=== PATIENT | female | born 1970 | race Caucasian/White ===

== ENCOUNTER 2018-10-27 11:02 | Day surgery (SDC) | payer OTHER ==
[2018-10-27 11:37] VITALS: TEMP 98.2
[2018-10-27] MEDS ORDERED: LIDOCAINE 1% 20 ML VIAL (10MG/ML) FOR IV START INTRADERMA PRN (11:38)
[2018-10-27] MEDS ORDERED: LACTATED RINGERS 1,000 ML IV SCH (11:38)
[2018-10-27] MEDS ORDERED: LIDOCAINE 1% INJ 10MG/ML (20 ML MDV) ONE (12:14)
[2018-10-27] MEDS ORDERED: ONDANSETRON 4 MG/2 ML VIAL ONE (12:14)
[2018-10-27] MEDS ORDERED: PROPOFOL 10 MG/ML 20 ML VIAL IV ONE (12:14)
--- NOTE | 2018-10-27 12:20 | P.GSHP ---
History of Present Illness H&P Date: 10/27/18 Chief Complaint: Epigastric abdominal pain, family history colon cancer This a 48-year-old female who presents today for EGD and colonoscopy. Patient has a strong family history of colon cancer. She's had some complaints of epigastric dull pain. Patient will undergo EGD and colonoscopy. Past Medical History Past Medical History: Thyroid Disorder Additional Past Medical History / Comment(s): ovarian cysts, endometrial ablation; HAVING PAIN IN ABD AREA 2 WEEKS AGO X 3 WEEKS. History of Any Multi-Drug Resistant Organisms: None Reported Past Surgical History: Adenoidectomy, Section, Tonsillectomy Past Psychological History: No Psychological Hx Reported Smoking Status: Former smoker Past Alcohol Use History: Occasional Past Drug Use History: None Reported - Past Family History Father Additional Family Medical History / Comment(s): COLON CANCER Medications and Allergies Home Medications Medication Instructions Recorded Confirmed Type No Known Home Medications 10/03/18 10/27/18 History Allergies Allergy/AdvReac Type Severity Reaction Status Date / Time No Known Allergies Allergy Verified 10/03/18 19:20 Surgical - Exam Vital Signs Temp Pulse Resp BP Pulse Ox 98.2 F 69 18 108/58 98 10/27/18 11:34 10/27/18 11:34 10/27/18 11:34 10/27/18 11:34 10/27/18 11:34 - General well developed, well nourished, no distress - Eyes PERRL - ENT normal pinna - Neck no masses - Respiratory normal expansion - Cardiovascular Rhythm: regular - Abdomen Abdomen: soft, non tender Assessment and Plan Assessment: Epigastric abdominal pain, family history colon cancer. We'll perform EGD and colonoscopy.
--- NOTE | 2018-10-27 12:39 | P.OP ---
Date of Procedure: 10/27/18 Preoperative Diagnosis: Abdominal pain Family History of colon cancer Postoperative Diagnosis: Mild antral gastritis Mild diverticulosis Procedure(s) Performed: EGD Colonoscopy Anesthesia: MAC Surgeon: Seth Gary Pathology: other (Antrum) Condition: stable Disposition: PACU Description of Procedure: The patient's placed on the endoscopy table in the lateral position. She received IV sedation. The gastroscope placed oropharynx passed in the esophagus and into the stomach. The scope was then placed through the pylorus. The first and second portion of the duodenum appeared normal. Scope was then brought back the antrum this. Mildly inflamed. A biopsies was performed. Scope was then re troflexed and remainder of the stomach appeared normal. The GE junction was at 40 cm. The distal esophagus appeared normal. The proximal esophagus appeared normal. Scope was withdrawn for patient. Next digital rectal exam was performed which revealed no abnormalities. The possible colonoscope was then placed patient anus passed throughout the entire colon. The ileocecal valve sutures. The cecum, ascending and transverse colon appeared normal. In the descending and sigmoid colon there is mild diverticular changes. The scope was brought back the rectum and this appeared normal. Scope withdrawn for patient. Patient was scheduled for HIDA scan due to her epigastric abdominal pain.
[2018-10-27] MEDS ORDERED: IV FLUID CONTINUATION 450 ML IV ONE (12:44)
[2018-10-27 12:56] VITALS: RESP 16
[2018-10-27 13:01] VITALS: BP 128/67; PULSE 61
== END 2018-10-27 14:06 | disposition home or self-care (01) ==
LOC: ORWHC2ENDO 11:02
PROVIDERS: ATTEND Surgery
DX: K29.50 Unspecified chronic gastritis without bleeding (principal); K57.30 Diverticulosis of large intestine without perforation or abscess without bleeding; E07.9 Disorder of thyroid, unspecified; Z80.0 Family history of malignant neoplasm of digestive organs; Z87.891 Personal history of nicotine dependence
CPT/HCPCS: 43239; 45378; 81025; 88305; J2405; J2001; J2704

== ENCOUNTER 2018-10-30 11:20 | Inpatient (IN) | payer OTHER ==
[2018-10-30] MEDS ORDERED: MORPHINE SULFATE 4 MG/ML SYRINGE IV STA (11:49)
[2018-10-30] MEDS ORDERED: SODIUM CHLORIDE 0.9% 1,000 ML IV STA ×2 (11:49→14:57)
[2018-10-30 12:26] LABS: Basophils % (A) 0 %; Eosinophils # (A) 0.1 k/uL (0-0.7); Eosinophils % (A) 1 %; HCT 38.4 % (34.0-46.0); HGB 12.6 gm/dL (11.4-16.0); Lymphocytes # (A) 0.7 k/uL (1.0-4.8); Lymphocytes % (A) 8 %; MCH 28.8 pg (25.0-35.0); MCHC 32.7 g/dL (31.0-37.0); MCV 88.2 fL (80.0-100.0); Mean Platelet Volume 6.8; Monocytes # (A) 0.4 k/uL (0-1.0); Monocytes % (A) 4 %; Neutrophils # (A) 8.4 k/uL (1.3-7.7); Neutrophils % (A) 86 %; Platelet Count 346 k/uL (150-450); RBC 4.36 m/uL (3.80-5.40); RDW 13.4 % (11.5-15.5); WBC 9.8 k/uL (3.8-10.6)
[2018-10-30 12:30] LABS: ALT 16 U/L (9-52); AST 20 U/L (14-36); African American GFR (CKD) >90 (>60 ml/min/1.73 sqM); Albumin 4.5 g/dL (3.5-5.0); Alkaline Phosphatase 77 U/L (38-126); Amylase 54 U/L (30-110); Anion Gap 12 mmol/L; Blood Urea Nitrogen 4 mg/dL (7-17); Calcium 9.3 mg/dL (8.4-10.2); Carbon Dioxide 24 mmol/L (22-30); Chloride 102 mmol/L (98-107); Glucose 107 mg/dL (74-99); Magnesium 1.9 mg/dL (1.6-2.3); Phosphorus 3.6 mg/dL (2.5-4.5); Potassium 3.9 mmol/L (3.5-5.1); Sodium 138 mmol/L (137-145); Total Bilirubin 0.7 mg/dL (0.2-1.3); Total Protein 7.5 g/dL (6.3-8.2)
--- NOTE | 2018-10-30 12:51 | CT ---
EXAMINATION TYPE: CT abdomen pelvis w con DATE OF EXAM: 10/30/2018 HISTORY: Pelvic pain CT DLP: 735.2mGycm Automated Exposure Control for Dose Reduction was Utilized. CONTRAST: CT scan of the abdomen and pelvis is performed without oral but with IV Contrast, patient injected wi th 100 mL of Isovue 300. COMPARISON: CT abdomen and pelvis from 22 days ago FINDINGS: LUNG BASES: No significant abnormality is appreciated. LIVER/GB: Some subcentimeter hypodense lesions scattered throughout the liver are too small to furthe r characterize but presumably benign. PANCREAS: No significant abnormality is seen. SPLEEN: No significant abnormality is seen. ADRENALS: No significant abnormality is seen. KIDNEYS: No significant abnormality is seen. BOWEL: Normal-appearing appendix seen ascending from cecum. Evaluation bowel is suboptimal secondary to lack of enteric contrast. Stomach is suboptimally distended and thus limited in evaluation. No kev picious small or large bowel dilatation. Mild to moderate wall thickening in the mid to distal left c olon extending into proximal sigmoid colon with diverticula and focal moderate ill-defined fluid and fat stranding left lower quadrant consistent with acute diverticulitis axial image 48. No well-formed fluid collection or abscess. No pneumoperitoneum. UTERUS/ADNEXA: Anteverted uterus. Tiny amount of free fluid in pelvis axial image 72. Hypodense lesio ns in both ovaries measuring up to 3.9 cm right ovary axial image 60 stable or slightly less prominen t from prior. Ovarian findings have be better evaluated with pelvic ultrasound if desired. LYMPH NODES: No greater than 1cm abdominal or pelvic lymph nodes are appreciated. OSSEOUS STRUCTURES: Multilevel facet arthropathy in the lower lumbar spine. OTHER: No significant additional abnormality is seen. IMPRESSION: New moderate acute uncomplicated diverticulitis felt present in the distal left colon, le ft lower quadrant.
[2018-10-30 13:02] LABS: Appearance,Urine Clear (Clear); Bilirubin,Urine Negative (Negative); Blood,Urine Negative (Negative); Color,Urine Yellow; Glucose,Urine (UA) Negative (Negative); Ketones,Urine 3+ (Negative); Leukocyte Esterase,Urine Negative (Negative); Nitrite,Urine Negative (Negative); Protein,Urine Trace (Negative); Specific Gravity,Urine 1.019 (1.001-1.035); Urobilinogen,Urine <2.0 mg/dL (<2.0)
[2018-10-30] MEDS ORDERED: MORPHINE SULFATE 2 MG/ML SYRINGE IVP STA (13:12)
--- NOTE | 2018-10-30 13:34 | ED ---
Abdominal Pain HPI - General Chief Complaint: Abdominal Pain Stated Complaint: post op pain Time Seen by Provider: 10/30/18 11:34 Source: patient, RN notes reviewed, old records reviewed Mode of arrival: ambulatory Limitations: no limitations - History of Present Illness Initial Comments: This is a 48-year-old female the ER for evaluation she presents today for evaluation regards to abdominal pain chronic abdominal pain for months now. Patient is had upper GI and colonoscopy unsure of results wasn't told anything specific and direct. Patient had worsening pain since colonoscopy no appetite and unable to eat or drink. Patient's been diagnosed in the past with ovarian disease including cysts, patient is also been diagnosed with ulcer disease. No fevers. Patient complaining of currently diffuse abdominal pain with left lower quadrant abdominal pain MD Complaint: abdominal pain -: week(s), month(s) Location: LLQ, suprapubic Radiation: epigastric Migration to: epigastric Quality: cramping, stabbing, aching Consistency: constant Improves With: nothing Worsens With: nothing Context: recent surgery/procedure Associated Symptoms: nausea Treatments Prior to Arrival: NSAIDs - Related Data Home Medications Medication Instructions Recorded Confirmed Acetaminophen Tab [Tylenol Tab] 1,000 mg PO TID PRN 10/30/18 10/30/18 L.acidoph,Paracasei, B.lactis 1 cap PO DAILY 10/30/18 10/30/18 [Probiotic] traMADol HCL [Ultram] 50 mg PO DAILY PRN 10/30/18 10/30/18 Allergies Allergy/AdvReac Type Severity Reaction Status Date / Time No Known Allergies Allergy Verified 10/30/18 12:11 Review of Systems ROS Statement: Those systems with pertinent positive or pertinent negative responses have been documented in the HPI. ROS Other: All systems not noted in ROS Statement are negative. Past Medical History Past Medical History: Thyroid Disorder Additional Past Medical History / Comment(s): ovarian cysts, endometrial ablation; HAVING PAIN IN ABD AREA 2 WEEKS AGO X 3 WEEKS. History of Any Multi-Drug Resistant Organisms: None Reported Past Surgical History: Adenoidectomy, Section, Tonsillectomy Past Psychological History: No Psychological Hx Reported Smoking Status: Former smoker Past Alcohol Use History: Occasional Past Drug Use History: None Reported - Past Family History Father Additional Family Medical History / Comment(s): COLON CANCER General Exam Limitations: no limitations General appearance: alert, in no apparent distress Head exam: Present: atraumatic, normocephalic, normal inspection Eye exam: Present: normal appearance, PERRL, EOMI. Absent: scleral icterus, conjunctival injection, periorbital swelling ENT exam: Present: normal exam, mucous membranes moist Neck exam: Present: normal inspection. Absent: tenderness, meningismus, lymph adenopathy Respiratory exam: Present: normal lung sounds bilaterally. Absent: respiratory distress, wheezes, rales, rhonchi, stridor Cardiovascular Exam: Present: regular rate, normal rhythm, normal heart sounds. Absent: systolic murmur, diastolic murmur, rubs, gallop, clicks GI/Abdominal exam: Present: soft, normal bowel sounds. Absent: distended, tenderness, guarding, rebound, rigid Extremities exam: Present: normal inspection, full ROM, normal capillary refill. Absent: tenderness, pedal edema, joint swelling, calf tenderness Back exam: Present: normal inspection Neurological exam: Present: alert, oriented X3, CN II-XII intact Psychiatric exam: Present: normal affect, normal mood Skin exam: Present: warm, dry, intact, normal color. Absent: rash Course Vital Signs 10/30/18 10/30/18 11:30 14:09 Temperature 97.8 F Pulse Rate 82 79 Respiratory 20 22 Rate Blood Pressure 158/85 136/80 O2 Sat by Pulse 99 100 Oximetry - Reevaluation(s) Reevaluation #1: 10/30/18 13:33 Medical record including prior tests and visits are reviewed Medical Decision Making - Medical Decision Making 48 female to the ER for evaluation Resuscitation, presents today for evaluation regarding abdominal pain, diverticulitis findings on CT. Patient be admitted for treatment of diverticulitis intractable abdominal pain - Lab Data Result diagrams: 10/30/18 12:02 10/30/18 12:02 Lab Results 10/30/18 10/30/18 10/30/18 Range/Units 12:02 12:02 12:02 WBC 9.8 (3.8-10.6) k/uL RBC 4.36 (3.80-5.40) m/uL Hgb 12.6 (11.4-16.0) gm/dL Hct 38.4 (34.0-46.0) % MCV 88.2 (80.0-100.0) fL MCH 28.8 (25.0-35.0) pg MCHC 32.7 (31.0-37.0) g/dL RDW 13.4 (11.5-15.5) % Plt Count 346 (150-450) k/uL Neutrophils % 86 % Lymphocytes % 8 % Monocytes % 4 % Eosinophils % 1 % Basophils % 0 % Neutrophils # 8.4 H (1.3-7.7) k/uL Lymphocytes # 0.7 L (1.0-4.8) k/uL Monocytes # 0.4 (0-1.0) k/uL Eosinophils # 0.1 (0-0.7) k/uL Basophils # 0.0 (0-0.2) k/uL Sodium 138 (137-145) mmol/L Potassium 3.9 (3.5-5.1) mmol/L Chloride 102 (98-107) mmol/L Carbon Dioxide 24 (22-30) mmol/L Anion Gap 12 mmol/L BUN 4 L (7-17) mg/dL Creatinine 0.58 (0.52-1.04) mg/dL Est GFR (CKD-EPI)AfAm >90 (>60 ml/min/1.73 sqM) Est GFR (CKD-EPI)NonAf >90 (>60 ml/min/1.73 sqM) Glucose 107 H (74-99) mg/dL Plasma Lactic Acid Cullen 1.0 (0.7-2.0) mmol/L Calcium 9.3 (8.4-10.2) mg/dL Phosphorus 3.6 (2.5-4.5) mg/dL Magnesium 1.9 (1.6-2.3) mg/dL Total Bilirubin 0.7 (0.2-1.3) mg/dL AST 20 (14-36) U/L ALT 16 (9-52) U/L Alkaline Phosphatase 77 (38-126) U/L Total Protein 7.5 (6.3-8.2) g/dL Albumin 4.5 (3.5-5.0) g/dL Amylase 54 (30-110) U/L Lipase 56 (23-300) U/L Urine Color Urine Appearance (Clear) Urine pH (5.0-8.0) Ur Specific Eldridge (1.001-1.035) Urine Protein (Negative) Urine Glucose (UA) (Negative) Urine Ketones (Negative) Urine Blood (Negative) Urine Nitrite (Negative) Urine Bilirubin (Negative) Urine Urobilinogen (<2.0) mg/dL Ur Leukocyte Esterase (Negative) 10/30/18 Range/Units 12:49 WBC (3.8-10.6) k/uL RBC (3.80-5.40) m/uL Hgb (11.4-16.0) gm/dL Hct (34.0-46.0) % MCV (80.0-100.0) fL MCH (25.0-35.0) pg MCHC (31.0-37.0) g/dL RDW (11.5-15.5) % Plt Count (150-450) k/uL Neutrophils % % Lymphocytes % % Monocytes % % Eosinophils % % Basophils % % Neutrophils # (1.3-7.7) k/uL Lymphocytes # (1.0-4.8) k/uL Monocytes # (0-1.0) k/uL Eosinophils # (0-0.7) k/uL Basophils # (0-0.2) k/uL Sodium (137-145) mmol/L Potassium (3.5-5.1) mmol/L Chloride (98-107) mmol/L Carbon Dioxide (22-30) mmol/L Anion Gap mmol/L BUN (7-17) mg/dL Creatinine (0.52-1.04) mg/dL Est GFR (CKD-EPI)AfAm (>60 ml/min/1.73 sqM) Est GFR (CKD-EPI)NonAf (>60 ml/min/1.73 sqM) Glucose (74-99) mg/dL Plasma Lactic Acid Cullen (0.7-2.0) mmol/L Calcium (8.4-10.2) mg/dL Phosphorus (2.5-4.5) mg/dL Magnesium (1.6-2.3) mg/dL Total Bilirubin (0.2-1.3) mg/dL AST (14-36) U/L ALT (9-52) U/L Alkaline Phosphatase (38-126) U/L Total Protein (6.3-8.2) g/dL Albumin (3.5-5.0) g/dL Amylase (30-110) U/L Lipase (23-300) U/L Urine Color Yellow Urine Appearance Clear (Clear) Urine pH 6.0 (5.0-8.0) Ur Specific Eldridge 1.019 (1.001-1.035) Urine Protein Trace H (Negative) Urine Glucose (UA) Negative (Negative) Urine Ketones 3+ H (Negative) Urine Blood Negative (Negative) Urine Nitrite Negative (Negative) Urine Bilirubin Negative (Negative) Urine Urobilinogen <2.0 (<2.0) mg/dL Ur Leukocyte Esterase Negative (Negative) - Radiology Data Radiology results: report reviewed (Up some gallbladder negative for acute disease CT of the pelvis positive for diverticulitis), image reviewed Disposition Clinical Impression: Abdominal pain, Diverticulitis Disposition: ADMITTED IP TO THIS [facility] Condition: Good Is patient prescribed a controlled substance at d/c from ED?: No Referrals: Lauren Porter DO [Primary Care Provider] - 1-2 days
[2018-10-30] MEDS ORDERED: MORPHINE SULFATE 4 MG/ML SYRINGE IVP STA (14:03)
[2018-10-30] MEDS ORDERED: MORPHINE SULFATE 2 MG/ML SYRINGE IM STA (14:04)
--- NOTE | 2018-10-30 14:15 | US ---
EXAMINATION TYPE: US gallbladder DATE OF EXAM: 10/30/2018 COMPARISON: CT abdomen and pelvis earlier today CLINICAL HISTORY: Pain. Pain, nausea and vomiting. EXAM MEASUREMENTS: Liver Length: 14.8 cm Gallbladder Wall: 0.3 cm CBD: 0.5 cm Right Kidney: 10.6 x 3.7 x 4.5 cm Pancreas: Tail obscured by overlying bowel gas Liver: wnl Gallbladder: wnl Evidence for sonographic Ferrer's sign: No CBD: wnl Right Kidney: wnl IMPRESSION: No shadowing mobile gallstones or ultrasound evidence for acute cholecystitis.
[2018-10-30] MEDS ORDERED: HYDROmorphone 1 MG/ML 1 ML SYRINGE IVP STA (14:34)
[2018-10-30] MEDS ORDERED: PANTOPRAZOLE 40 MG/10 ML VIAL IVP STA (14:48)
[2018-10-30] MEDS ORDERED: PIPERACILLIN-TAZOBACTAM 3.375 GM in SODIUM CHLORIDE 0.9% 100 ML IVPB STA (14:48)
[2018-10-30] MEDS ORDERED: ONDANSETRON 4 MG/2 ML VIAL IVP STA (14:48)
[2018-10-30 16:09] VITALS: BMI 32.1
[2018-10-30] MEDS: HYDROmorphone 1 MG/ML 1 ML SYRINGE IVP PRN ×2 (17:19→23:35)
[2018-10-30] MEDS: ONDANSETRON 4 MG/2 ML VIAL IVP PRN (19:34)
[2018-10-30] MEDS: ACETAMINOPHEN TAB 500 MG TAB PO PRN (19:34)
[2018-10-30] MEDS: PIPERACILLIN-TAZOBACTAM 3.375 GM in SODIUM CHLORIDE 0.9% 100 ML IVPB SCH (23:39)
[2018-10-31] MEDS: ACETAMINOPHEN TAB 500 MG TAB PO PRN (03:38)
[2018-10-31] MEDS: ONDANSETRON 4 MG/2 ML VIAL IVP PRN ×4 (03:38→23:03)
[2018-10-31] MEDS: HYDROmorphone 1 MG/ML 1 ML SYRINGE IVP PRN ×2 (04:27→09:37)
[2018-10-31] MEDS: PIPERACILLIN-TAZOBACTAM 3.375 GM in SODIUM CHLORIDE 0.9% 100 ML IVPB SCH ×3 (07:47→23:03)
[2018-10-31] MEDS: PANTOPRAZOLE 40 MG/10 ML VIAL IVP SCH (07:47)
[2018-10-31] MEDS: ACETAMINOPHEN TAB 500 MG TAB PO SCH ×3 (09:30→23:03)
[2018-10-31] MEDS: SUCRALFATE 1 GM TAB PO SCH ×2 (09:31→15:48)
[2018-10-31 09:58] LABS: Basophils % (A) 0 %; Eosinophils % (A) 0 %; HCT 35.6 % (34.0-46.0); HGB 11.7 gm/dL (11.4-16.0); Lymphocytes # (A) 0.9 k/uL (1.0-4.8); Lymphocytes % (A) 12 %; MCH 29.3 pg (25.0-35.0); MCHC 32.8 g/dL (31.0-37.0); MCV 89.2 fL (80.0-100.0); Mean Platelet Volume 6.5; Monocytes # (A) 0.4 k/uL (0-1.0); Monocytes % (A) 5 %; Neutrophils # (A) 6.2 k/uL (1.3-7.7); Neutrophils % (A) 80 %; Platelet Count 327 k/uL (150-450); RBC 3.99 m/uL (3.80-5.40); RDW 13.3 % (11.5-15.5); WBC 7.7 k/uL (3.8-10.6)
[2018-10-31 10:09] LABS: African American GFR (CKD) >90 (>60 ml/min/1.73 sqM); Anion Gap 9 mmol/L; Blood Urea Nitrogen 6 mg/dL (7-17); Calcium 8.9 mg/dL (8.4-10.2); Carbon Dioxide 25 mmol/L (22-30); Chloride 103 mmol/L (98-107); Glucose 79 mg/dL (74-99); Sodium 137 mmol/L (137-145)
--- NOTE | 2018-10-31 13:36 | P.HPIM ---
History of Present Illness H&P Date: 10/31/18 Meryl Pickett is a 48 yo F with PMH significant for endometriosis, GERD who presented to [facility] ED complaining of worsening abdominal pain. She states that ever since having an endometrial ablation a few months ago she has been having dysmenorrhea and taking naprosyn approx 2 weeks out of every month. Due to this she had started to have more/worsened abdominal pain so recently underwent an EGD and colonoscopy. Her EGD showed mild gastritis and colonoscopy remarkable only for diverticulosis. Since undergoing her procedures 4 days ago, she has noted continued LLQ which worsened yesterday to be severe with associated nausea and malaise. She also vomited once. Denies hematochezia or melena. On pre sentation to the ED, vitals stable, WBC 9.8, CT did show diverticulitis. She was started on zosyn. This am, she continues to complain of abdominal pain which is improved from yesterday. No feves or chills. Her appetite is improving. Review of Systems All systems: negative Constitutional: Reports fatigue, Reports malaise, Denies chills, Denies fever Eyes: denies blurred vision, denies pain Ears, nose, mouth and throat: Denies headache, Denies sore throat Cardiovascular: Denies chest pain, Denies shortness of breath Respiratory: Denies cough Gastrointestinal: Reports abdominal pain, Reports early satiety, Reports heartburn, Reports loss of appetite, Reports nausea, Denies diarrhea, Denies vomiting Genitourinary: Reports dysmenorrhea, Denies dysuria, Denies hematuria Musculoskeletal: Denies myalgias Integumentary: Denies pruritus, Denies rash Neurological: Denies numbness, Denies weakness Psychiatric: Denies anxiety, Denies depression Endocrine: Denies fatigue, Denies weight change Past Medical History Past Medical History: Thyroid Disorder Additional Past Medical History / Comment(s): ovarian cysts, endometrial ablation; HAVING PAIN IN ABD AREA 2 WEEKS AGO X 3 WEEKS. History of Any Multi-Drug Resistant Organisms: None Reported Past Surgical History: Adenoidectomy, Section, Tonsillectomy Past Anesthesia/Blood Transfusion Reactions: No Reported Reaction Past Psychological History: No Psychological Hx Reported Smoking Status: Former smoker Past Alcohol Use History: Occasional Past Drug Use History: None Reported - Past Family History Father Additional Family Medical History / Comment(s): COLON CANCER Medications and Allergies Home Medications Medication Instructions Recorded Confirmed Type Acetaminophen Tab [Tylenol Tab] 1,000 mg PO TID PRN 10/30/18 10/30/18 History L.acidoph,Paracasei, B.lactis 1 cap PO DAILY 10/30/18 10/30/18 History [Probiotic] traMADol HCL [Ultram] 50 mg PO DAILY PRN 10/30/18 10/30/18 History Allergies Allergy/AdvReac Type Severity Reaction Status Date / Time No Known Allergies Allergy Verified 10/30/18 12:11 Physical Exam Vitals: Vital Signs Temp Pulse Pulse Resp BP BP Pulse Ox 10/31/18 07:00 98.7 F 77 16 111/71 98 10/31/18 01:56 98.5 F 76 16 107/64 98 10/30/18 19:17 98.7 F 68 17 134/79 99 10/30/18 16:14 16 10/30/18 15:43 97.5 F L 74 16 141/77 99 10/30/18 14:09 79 22 136/80 100 10/30/18 11:30 97.8 F 82 20 158/85 99 Intake and Output 10/30/18 10/31/18 10/31/18 22:59 06:59 14:59 Other: # Voids 1 1 General: well nourished, well developed, NAD. Vitals reviewed Eyes: PERRL, EOMI, conjunctiva normal HENT: normocephalic, mucus membranes moist Neck: supple, no JVD Lungs: normal respiratory effort, no wheezes or rales CV: Regular rate and rhythm, no murmur. Peripheral pulses 2+ Abdomen: soft, nondistended, no organomegaly. LLQ tenderness Lymph: no cervical or axillary LAD Skin: warm and dry. Neuro: A&Ox3, normal mood and affect Results CBC & Chem 7: 10/31/18 09:20 10/31/18 09:20 Labs: Abnormal Lab Results - Last 24 Hours (Table) 10/30/18 10/30/18 10/30/18 Range/Units 12:02 12:02 12:49 Neutrophils # 8.4 H (1.3-7.7) k/uL Lymphocytes # 0.7 L (1.0-4.8) k/uL BUN 4 L (7-17) mg/dL Glucose 107 H (74-99) mg/dL Urine Protein Trace H (Negative) Urine Ketones 3+ H (Negative) 10/31/18 10/31/18 Range/Units 09:20 09:20 Neutrophils # (1.3-7.7) k/uL Lymphocytes # 0.9 L (1.0-4.8) k/uL BUN 6 L (7-17) mg/dL Glucose (74-99) mg/dL Urine Protein (Negative) Urine Ketones (Negative) Thrombosis Risk Factor Assmnt - Choose All That Apply Any of the Below Risk Factors Present?: Yes Each Factor Represents 1 point: Age 41-60 years, Obesity (BMI >25) Thrombosis Risk Factor Assessment Total Risk Factor Score: 2 Thrombosis Risk Factor Assessment Level: Low Risk Assessment and Plan (1) Diverticulitis Current Visit: Yes Status: Acute Code(s): K57.92 - DVTRCLI OF INTEST, PART UNSP, W/O PERF OR ABSCESS W/O BLEED SNOMED Code(s): 671627770 (2) GERD (gastroesophageal reflux disease) Current Visit: Yes Status: Acute Code(s): K21.9 - GASTRO-ESOPHAGEAL REFLUX DISEASE WITHOUT ESOPHAGITIS SNOMED Code(s): 724254186 (3) Dysmenorrhea Current Visit: Yes Status: Acute Code(s): N94.6 - DYSMENORRHEA, UNSPECIFIED SNOMED Code(s): 341420783 Plan: 1. Diverticulitis. On zosyn, wbc decreasing today and appetite improving. Consider transition to PO abx tomorrow 2. Gastritis. Likely secondary to chronic NSAID use. Protonix while inpatient, script for PPI on discharge Pain controlled with dilaudid. Transition to norco today
[2018-10-31 14:04] LABS: C. trachomatis,PCR Negative (Neg,Equiv); Chlamydia trachomatis Source Urine; N. gonorrhoeae,PCR Negative (Neg,Equiv); Neisseria Source Urine
[2018-10-31] MEDS ORDERED: HYDROmorphone 0.5 MG/0.5 ML SYRINGE IVP PRN (14:07)
--- NOTE | 2018-10-31 14:22 | P.GSCN ---
<Clare Peter A - Last Filed: 10/31/18 14:11> History of Present Illness Consult date: 10/31/18 Reason for Consult: Abdominal pain Requesting physician: Jose R Garcia History of present illness: CHIEF COMPLAINT: Abdominal pain HISTORY OF PRESENT ILLNESS: 48-year-old female who presented to the emergency room with a chief complaint abdominal pain. Patient reports she has been having abdominal pain on and off for the last month but it became more severe over the last couple days. Patient recently underwent EGD and colonoscopy on 10/27/2018 revealing mild gastritis and diverticulosis. Patient seen and examined this morning to bedside. She continues to complain of left lower quadrant abdominal pain. Currently rating her pain a 6/10. [place] at the bedside with bilious emesis. Patient reports she has been drinking liquids and eating jello. She reports family history of colon cancer and diverticulitis. WBC upon admission reveals white count 9.8. Repeat this morning 7.7. CAT scan completed in the emergency room reveals moderate diverticulitis. PAST MEDICAL HISTORY: See list. PAST SURGICAL HISTORY: See list. SOCIAL HISTORY: No illicit drug use. REVIEW OF SYSTEMS: CONSTITUTIONAL: Denies fever or chills. HEENT: Denies blurred vision, vision changes, or eye pain. Denies hemoptysis CARDIOVASCULAR: Denies chest pain or pressure. RESPIRATORY: No shortness of breath. GASTROINTESTINAL: Refer to HPI for pertinent findings HEMATOLOGIC: Denies bleeding disorders. GENITOURINARY: Denies any blood in urine. SKIN: Denies pruitis. Denies rash. PHYSICAL EXAM: VITAL SIGNS: Reviewed. GENERAL: Well-developed in no acute distress. HEENT: No sclera icterus. Extraocular movements grossly intact. Moist buccal mucosa. Head is atraumatic, normocephalic. ABDOMEN: Soft. Nondistended. Tenderness with palpation to left lower quadrant. NEUROLOGIC: Alert and oriented. Cranial nerves II through XII grossly intact. ASSESSMENT: 1. Abdominal pain 2. Acute moderate diverticulitis 3. Recent EGD and colonoscopy revealing gastritis and diverticulosis 4. Chronic NSAID use PLAN: 1. NPO except ice chips until patients abdominal pain improves 2. Continue Zosyn 3. Protonix IV daily 4. Further recommendations pending patient course Nurse practitioner note has been reviewed by physician. Signing provider agrees with the documented findings, assessment, and plan of care. Past Medical History Past Medical History: Thyroid Disorder Additional Past Medical History / Comment(s): ovarian cysts, endometrial ablation; HAVING PAIN IN ABD AREA 2 WEEKS AGO X 3 WEEKS. History of Any Multi-Drug Resistant Organisms: None Reported Past Surgical History: Adenoidectomy, Section, Tonsillectomy Past Anesthesia/Blood Transfusion Reactions: No Reported Reaction Past Psychological History: No Psychological Hx Reported Smoking Status: Former smoker Past Alcohol Use History: Occasional Past Drug Use History: None Reported - Past Family History Father Additional Family Medical History / Comment(s): COLON CANCER Medications and Allergies Home Medications Medication Instructions Recorded Confirmed Type Acetaminophen Tab [Tylenol Tab] 1,000 mg PO TID PRN 10/30/18 10/30/18 History L.acidoph,Paracasei, B.lactis 1 cap PO DAILY 10/30/18 10/30/18 History [Probiotic] traMADol HCL [Ultram] 50 mg PO DAILY PRN 10/30/18 10/30/18 History Allergies Allergy/AdvReac Type Severity Reaction Status Date / Time No Known Allergies Allergy Verified 10/30/18 12:11 Surgical - Exam Vital Signs Temp Pulse Resp BP Pulse Ox 97.8 F 82 20 158/85 99 10/30/18 11:30 10/30/18 11:30 10/30/18 11:30 10/30/18 11:30 10/30/18 11:30 Results - Labs 10/31/18 09:20 10/31/18 09:20 Abnormal Lab Results - Last 24 Hours (Table) 10/31/18 10/31/18 Range/Units 09:20 09:20 Lymphocytes # 0.9 L (1.0-4.8) k/uL BUN 6 L (7-17) mg/dL Diabetes panel 10/31/18 Range/Units 09:20 Sodium 137 (137-145) mmol/L Potassium 4.0 (3.5-5.1) mmol/L Chloride 103 (98-107) mmol/L Carbon Dioxide 25 (22-30) mmol/L BUN 6 L (7-17) mg/dL Creatinine 0.59 (0.52-1.04) mg/dL Glucose 79 (74-99) mg/dL Calcium 8.9 (8.4-10.2) mg/dL Calcium panel 10/31/18 Range/Units 09:20 Calcium 8.9 (8.4-10.2) mg/dL Pituitary panel 10/31/18 Range/Units 09:20 Sodium 137 (137-145) mmol/L Potassium 4.0 (3.5-5.1) mmol/L Chloride 103 (98-107) mmol/L Carbon Dioxide 25 (22-30) mmol/L BUN 6 L (7-17) mg/dL Creatinine 0.59 (0.52-1.04) mg/dL Glucose 79 (74-99) mg/dL Calcium 8.9 (8.4-10.2) mg/dL Adrenal panel 10/31/18 Range/Units 09:20 Sodium 137 (137-145) mmol/L Potassium 4.0 (3.5-5.1) mmol/L Chloride 103 (98-107) mmol/L Carbon Dioxide 25 (22-30) mmol/L BUN 6 L (7-17) mg/dL Creatinine 0.59 (0.52-1.04) mg/dL Glucose 79 (74-99) mg/dL Calcium 8.9 (8.4-10.2) mg/dL <Milton Lawton - Last Filed: 10/31/18 16:24> History of Present Illness History of present illness: As above. Patient with CAT scan showing diverticulitis with small amount of pericolonic gas seen. Patient doing well today however. Will keep nothing by mouth for now. Continue IV antibiotics. Surgical - Exam Vital Signs Temp Pulse Resp BP Pulse Ox 97.8 F 82 20 158/85 99 10/30/18 11:30 10/30/18 11:30 10/30/18 11:30 10/30/18 11:30 10/30/18 11:30 Results - Labs 10/31/18 09:20 10/31/18 09:20 Abnormal Lab Results - Last 24 Hours (Table) 10/31/18 10/31/18 Range/Units 09:20 09:20 Lymphocytes # 0.9 L (1.0-4.8) k/uL BUN 6 L (7-17) mg/dL Diabetes panel 10/31/18 Range/Units 09:20 Sodium 137 (137-145) mmol/L Potassium 4.0 (3.5-5.1) mmol/L Chloride 103 (98-107) mmol/L Carbon Dioxide 25 (22-30) mmol/L BUN 6 L (7-17) mg/dL Creatinine 0.59 (0.52-1.04) mg/dL Glucose 79 (74-99) mg/dL Calcium 8.9 (8.4-10.2) mg/dL Calcium panel 10/31/18 Range/Units 09:20 Calcium 8.9 (8.4-10.2) mg/dL Pituitary panel 10/31/18 Range/Units 09:20 Sodium 137 (137-145) mmol/L Potassium 4.0 (3.5-5.1) mmol/L Chloride 103 (98-107) mmol/L Carbon Dioxide 25 (22-30) mmol/L BUN 6 L (7-17) mg/dL Creatinine 0.59 (0.52-1.04) mg/dL Glucose 79 (74-99) mg/dL Calcium 8.9 (8.4-10.2) mg/dL Adrenal panel 10/31/18 Range/Units 09:20 Sodium 137 (137-145) mmol/L Potassium 4.0 (3.5-5.1) mmol/L Chloride 103 (98-107) mmol/L Carbon Dioxide 25 (22-30) mmol/L BUN 6 L (7-17) mg/dL Creatinine 0.59 (0.52-1.04) mg/dL Glucose 79 (74-99) mg/dL Calcium 8.9 (8.4-10.2) mg/dL
[2018-10-31] MEDS: HYDROcodone/APAP 10-325MG 1 EACH TAB PO PRN (23:12)
[2018-11-01] MEDS: HYDROcodone/APAP 10-325MG 1 EACH TAB PO PRN (05:16)
[2018-11-01 08:34] LABS: Basophils % (A) 0 %; Eosinophils % (A) 1 %; HCT 35.1 % (34.0-46.0); HGB 11.4 gm/dL (11.4-16.0); Lymphocytes # (A) 0.7 k/uL (1.0-4.8); Lymphocytes % (A) 12 %; MCH 29.7 pg (25.0-35.0); MCHC 32.5 g/dL (31.0-37.0); MCV 91.1 fL (80.0-100.0); Mean Platelet Volume 6.7; Monocytes # (A) 0.3 k/uL (0-1.0); Monocytes % (A) 5 %; Neutrophils # (A) 4.9 k/uL (1.3-7.7); Neutrophils % (A) 80 %; Platelet Count 299 k/uL (150-450); RBC 3.85 m/uL (3.80-5.40); RDW 13.9 % (11.5-15.5); WBC 6.1 k/uL (3.8-10.6)
[2018-11-01 08:43] LABS: African American GFR (CKD) >90 (>60 ml/min/1.73 sqM); Anion Gap 12 mmol/L; Blood Urea Nitrogen 7 mg/dL (7-17); Calcium 8.5 mg/dL (8.4-10.2); Carbon Dioxide 19 mmol/L (22-30); Chloride 106 mmol/L (98-107); Glucose 67 mg/dL (74-99); Potassium 3.9 mmol/L (3.5-5.1); Sodium 137 mmol/L (137-145)
--- NOTE | 2018-11-01 10:20 | P.PN ---
Subjective Progress Note Date: 11/01/18 Principal diagnosis: Diverticulitis Patient does feel better today. Some gassy pains. She is passing flatus. No bowel movement for the last several days. Her appetite is improved. White blood cell count 6.1. She is afebrile. Objective - Vital Signs Vital signs: Vital Signs Temp 98.0 F 11/01/18 08:03 Pulse 72 11/01/18 08:03 Resp 16 11/01/18 08:03 BP 120/71 11/01/18 08:03 Pulse Ox 98 11/01/18 08:03 Intake & Output 10/31/18 11/01/18 11/01/18 18:59 06:59 18:59 Intake Total 700 Balance 700 Intake: Intake, IV Titration 700 Amount Piperacillin-Tazobactam 3 100 .375 gm In Sodium Chloride 0.9% 100 ml @ 25 mls/hr IVPB Q8HR AMEYA Rx# :[id number] Sodium Chloride 0.9% 1, 600 000 ml @ 100 mls/hr IV . Q10H STA Rx#:[id number] Other: Voiding Method Toilet - Exam Abdomen: Soft, nondistended, mild left-sided tenderness - Labs CBC & Chem 7: 11/01/18 07:34 11/01/18 07:34 Labs: Abnormal Lab Results - Last 24 Hours (Table) 11/01/18 11/01/18 Range/Units 07:34 07:34 Lymphocytes # 0.7 L (1.0-4.8) k/uL Carbon Dioxide 19 L (22-30) mmol/L Glucose 67 L (74-99) mg/dL Assessment and Plan (1) Diverticulitis Narrative/Plan: Will start clear liquids at this time. Include ensure clear. Continue antibiotics. Add Toradol for pain control. Ambulate. Current Visit: Yes Status: Acute Code(s): K57.92 - DVTRCLI OF INTEST, PART U NSP, W/O PERF OR ABSCESS W/O BLEED SNOMED Code(s): 833592925
[2018-11-01] MEDS: PANTOPRAZOLE 40 MG/10 ML VIAL IVP SCH (10:23)
[2018-11-01] MEDS: PIPERACILLIN-TAZOBACTAM 3.375 GM in SODIUM CHLORIDE 0.9% 100 ML IVPB SCH ×2 (10:23→17:13)
[2018-11-01] MEDS: SUCRALFATE 1 GM TAB PO SCH ×2 (10:23→17:13)
[2018-11-01] MEDS: ACETAMINOPHEN TAB 500 MG TAB PO SCH ×2 (10:27→17:14)
--- NOTE | 2018-11-01 12:58 | P.PN ---
Subjective On-call hospitalist covering for for the weekend This is a pleasant 48 years old female PMH significant for endometriosis, GERD who presented to [facility] ED complaining of worsening abdominal pain. She states that ever since having an endometrial ablation a few months ago she has been having dysmenorrhea and taking naprosyn approx 2 weeks out of every month. Due to this she had started to have more/worsened abdominal pain so recently underwent an EGD and colonoscopy. Her EGD showed mild gastritis and colonoscopy remarkable only for diverticulosis. Since undergoing her procedures 4 days ago, she has noted continued LLQ which worsened yesterday to be severe with associated nausea and malaise. She also vomited once. Denies hematochezia or melena. On presentation to the ED, vitals stable, WBC 9.8, CT did show diverticulitis. She was started on zosyn. Also she is on Protonix and Carafate. Surgery team consult on the advanced diet to clear liquid. She is hemodynamically stable. Labs including CBC and BMP and liver enzymes were unremarkable. She has negative gallbladder ultrasound with no evidence of cholecystitis Patient also states has history of endometriosis status post endometrial abrasion on 03/2018 and she is not been followed up with internal consultant for that. She is not sure about her mesh or cycle. She agrees to check her test of blood. Also patient has history of tubal ligation. Objective - Vital Signs Vital signs: Vital Signs Temp 98.0 F 11/01/18 08:03 Pulse 72 11/01/18 08:03 Resp 16 11/01/18 08:03 BP 120/71 11/01/18 08:03 Pulse Ox 98 11/01/18 08:03 Intake & Output 10/31/18 11/01/18 11/01/18 18:59 06:59 18:59 Intake Total 700 Balance 700 Intake: Intake, IV Titration 700 Amount Piperacillin-Tazobactam 3 100 .375 gm In Sodium Chloride 0.9% 100 ml @ 25 mls/hr IVPB Q8HR AMEYA Rx# :[id number] Sodium Chloride 0.9% 1, 600 000 ml @ 100 mls/hr IV . Q10H STA Rx#:[id number] Other: Voiding Method Toilet - Exam GENERAL: The patient is alert and oriented x3, not in any acute distress. Well developed, well nourished. HEENT: Pupils are round and equally reacting to light. EOMI. No scleral icterus. No conjunctival pallor. Normocephalic, atraumatic. No pharyngeal erythema. No thyromegaly. CARDIOVASCULAR: S1 and S2 present. No murmurs, rubs, or gallops. PULMONARY: Chest is clear to auscultation, no wheezing or crackles. -ABDOMEN: Soft, LLQ tenderness, no rebound tenderness or guarding, nondistended, normoactive bowel sounds. No palpable organomegaly. MUSCULOSKELETAL: No joint swelling or deformity. EXTREMITIES: No cyanosis, clubbing, or pedal edema. NEUROLOGICAL: Gross neurological examination did not reveal any focal deficits. SKIN: No rashes. - Labs CBC & Chem 7: 11/01/18 07:34 11/01/18 07:34 Labs: Abnormal Lab Results - Last 24 Hours (Table) 11/01/18 11/01/18 Range/Units 07:34 07:34 Lymphocytes # 0.7 L (1.0-4.8) k/uL Carbon Dioxide 19 L (22-30) mmol/L Glucose 67 L (74-99) mg/dL Assessment and Plan Assessment: Acute diverticulitis History of endometriosis History of GERD Plan: This is a pleasant 48 years old female who presents with acute diverticulitis. Continue with Zosyn. Surgery team are following the patient. Advanced diet as tolerated. Pain management. Continue with IV hydration. Since the patient is not sure about her menstrual cycle despite her endometrial procedure and history of tubal ligation, she agrees to check for test. Labs and medication were reviewed.. Continue same treatment. Continue with symptomatic treatment. Resume home medication. Monitor lytes and vitals. DVT and GI prophylaxis. Further recommendations of the clinical course of the patient DVT prophylaxis: Subcutaneous heparin GI Prophylaxis: Protonix Prognosis is guarded
[2018-11-01] MEDS: KETOROLAC 30 MG/ML 1 ML VIAL IVP SCH ×2 (13:06→18:10)
[2018-11-02] MEDS: ACETAMINOPHEN TAB 500 MG TAB PO SCH ×4 (00:11→22:04)
[2018-11-02] MEDS: PIPERACILLIN-TAZOBACTAM 3.375 GM in SODIUM CHLORIDE 0.9% 100 ML IVPB SCH ×4 (00:16→23:59)
[2018-11-02] MEDS: KETOROLAC 30 MG/ML 1 ML VIAL IVP SCH ×4 (00:16→20:01)
[2018-11-02] MEDS: PANTOPRAZOLE 40 MG/10 ML VIAL IVP SCH (09:06)
[2018-11-02] MEDS: SUCRALFATE 1 GM TAB PO SCH ×2 (09:07→18:24)
[2018-11-02 09:33] LABS: Basophils % (A) 0 %; Eosinophils # (A) 0.1 k/uL (0-0.7); Eosinophils % (A) 1 %; HCT 32.8 % (34.0-46.0); HGB 10.8 gm/dL (11.4-16.0); Lymphocytes # (A) 0.8 k/uL (1.0-4.8); Lymphocytes % (A) 12 %; MCV 88.1 fL (80.0-100.0); Mean Platelet Volume 6.4; Monocytes # (A) 0.4 k/uL (0-1.0); Monocytes % (A) 6 %; Neutrophils # (A) 4.8 k/uL (1.3-7.7); Neutrophils % (A) 78 %; Platelet Count 309 k/uL (150-450); RBC 3.73 m/uL (3.80-5.40); RDW 13.3 % (11.5-15.5); WBC 6.2 k/uL (3.8-10.6)
[2018-11-02 09:47] LABS: African American GFR (CKD) >90 (>60 ml/min/1.73 sqM); Anion Gap 10 mmol/L; Blood Urea Nitrogen 3 mg/dL (7-17); Calcium 8.6 mg/dL (8.4-10.2); Carbon Dioxide 23 mmol/L (22-30); Chloride 105 mmol/L (98-107); Glucose 111 mg/dL (74-99); Potassium 3.6 mmol/L (3.5-5.1); Sodium 138 mmol/L (137-145)
--- NOTE | 2018-11-02 10:00 | P.PN ---
Subjective Progress Note Date: 11/02/18 Principal diagnosis: Diverticulitis Patient doing well today. No pain at this time. She is not taking pain medications either. She had a bowel movement and flatus. No bloating. She is tolerating her liquids. She is hungry for more food at this time. She would like to go home. She is afebrile. White blood cell count remains normal. Objective - Vital Signs Vital signs: Vital Signs Temp 98.3 F 11/02/18 00:00 Pulse 69 11/02/18 00:00 Resp 18 11/02/18 00:00 BP 116/70 11/02/18 00:00 Pulse Ox 97 11/02/18 00:00 Intake & Output 11/01/18 11/02/18 11/02/18 18:59 06:59 18:59 Intake Total 500 910 Balance 500 910 Intake: Oral 500 910 Other: Voiding Method Toilet # Voids 2 2 - Exam Abdomen: Soft, nontender, nondistended - Labs CBC & Chem 7: 11/02/18 08:42 11/02/18 08:42 Labs: Abnormal Lab Results - Last 24 Hours (Table) 11/02/18 11/02/18 Range/Units 08:42 08:42 RBC 3.73 L (3.80-5.40) m/uL Hgb 10.8 L (11.4-16.0) gm/dL Hct 32.8 L (34.0-46.0) % Lymphocytes # 0.8 L (1.0-4.8) k/uL BUN 3 L (7-17) mg/dL Glucose 111 H (74-99) mg/dL Assessment and Plan (1) Diverticulitis Narrative/Plan: Patient doing much better today. Stable for discharge from my standpoint. Prescription for Levaquin and Flagyl provided. Follow-up with Dr. Gary 1 week. Current Visit: Yes Status: Acute Code(s): K57.92 - DVTRCLI OF INTEST, PART UNSP, W/O PERF OR ABSCESS W/O BLEED SNOMED Code(s): 612417529
[2018-11-02 10:49] VITALS: RESP 16
[2018-11-02] MEDS ORDERED: ALPRAZolam 0.5 MG TAB PO PRN (12:21)
--- NOTE | 2018-11-02 12:23 | P.PN ---
Subjective On-call hospitalist covering for for the weekend This is a pleasant 48 years old female PMH significant for endometriosis, GERD who presented to [facility] ED complaining of worsening abdominal pain. She states that ever since having an endometrial ablation a few months ago she has been having dysmenorrhea and taking naprosyn approx 2 weeks out of every month. Due to this she had started to have more/worsened abdominal pain so recently underwent an EGD and colonoscopy. Her EGD showed mild gastritis and colonoscopy remarkable only for diverticulosis. Since undergoing her procedures 4 days ago, she has noted continued LLQ which worsened yesterday to be severe with associated nausea and malaise. She also vomited once. Denies hematochezia or melena. On presentation to the ED, vitals stable, WBC 9.8, CT did show diverticulitis. She was started on zosyn. Also she is on Protonix and Carafate. Surgery team consult on the advanced diet to clear liquid. She is hemodynamically stable. Labs including CBC and BMP and liver enzymes were unremarkable. She has negative gallbladder ultrasound with no evidence of cholecystitis Patient also states has history of endometriosis status post endometrial abrasion on 03/2018 and she is not been followed up with patient access specialist for that. She is not sure about her mesh or cycle. She agrees to check her test of blood. Also patient has history of tubal ligation. 11/02/2018 The patient with no nausea vomiting, she tolerated liquid diet. No abdominal pain but she still have lower quadrant tenderness. Today she developed for liquidy bowel movements, with no blood compared to yesterday when she had no bowel movement. Patient wants to advance diet to regular which I think is reasonable at this point. She had low-grade temperature of 99.2 yesterday, she is been afebrile today and her support does look stable. Patient has history of left Patient has history of recurrent abdominal pain, as him due to the ovary. She has transvaginal and abdominal ultrasound done at [facility] about one month ago when they told her she has cysts on the right ovary. Her pain was controlled previously with no proceeding however was becoming more frequent recently. Over the last 3 days she doesn't have such abdominal pain. Here on the abdominal CAT scan done when she came into the emergency room showing Hypodense lesions in both ovaries measuring up to 3.9 cm right ovary, however she has an appointment with patient access specialist on November 11, patient was encouraged to follow-up with his appointment and to take her CAT scan and ultrasound results to her doctor and she agrees. Review of systems CONSTITUTIONAL: No fever, no malaise, no fatigue. HEENT: No recent visual problems or hearing problems. Denied any sore throat. CARDIOVASCULAR: No orthopnea, PND, no palpitations, no syncope. PULMONARY: No shortness of breath, no cough, no hemoptysis. GASTROINTESTINAL: Normoactive bowel sounds. NEUROLOGICAL: No headaches, no weakness, no numbness. HEMATOLOGICAL: Denies any bleeding or petechiae. GENITOURINARY: Denies any burning micturition, frequency, or urgency. MUSCULOSKELETAL/RHEUMATOLOGICAL: Denies any joint pain, swelling, or any muscle pain. ENDOCRINE: Denies any polyuria or polydipsia. Active Medications Generic Name Dose Route Start Last Admin Trade Name Freq PRN Reason Stop Dose Admin Acetaminophen 1,000 mg 10/31/18 09:00 11/02/18 09:06 Tylenol Tab PO Not Given TID AMEYA Hydrocodone Bitart/Acetaminophen 1 each 10/31/18 13:36 11/01/18 05:16 [place] 10 PO 1 each Q6H PRN Administration Pain Hydromorphone HCl 0.5 mg 10/31/18 14:07 10/31/18 14:37 Dilaudid IVP 0.5 mg Q4HR PRN Administration Pain Piperacillin Sod/Tazobactam 100 mls @ 25 mls/hr 10/31/18 00:00 11/02/18 10:11 Sod 3.375 gm/ Sodium Chloride IVPB 25 mls/hr Q8HR AMEYA Administration Ketorolac Tromethamine 30 mg 11/01/18 12:00 11/02/18 06:47 Toradol IVP 11/03/18 06:01 30 mg Q6HR AMEYA Administration Ondansetron HCl 4 mg 10/30/18 14:48 10/31/18 23:03 Zofran IVP 4 mg Q6HR PRN Administration Nausea And Vomiting Pantoprazole Sodium 40 mg 10/31/18 09:00 11/02/18 09:06 Protonix IVP 40 mg DAILY AMEYA Administration Primidone 50 mg 11/02/18 21:00 [place] PO 11/09/18 21:01 HS AMEYA Sucralfate 1 gm 10/31/18 09:00 11/02/18 09:07 Carafate PO 1 gm AC-BID AMEYA Administration Objective - Vital Signs Vital signs: Vital Signs Temp 98.3 F 11/02/18 08:46 Pulse 65 11/02/18 08:46 Resp 16 11/02/18 08:46 BP 120/75 11/02/18 08:46 Pulse Ox 95 11/02/18 08:46 Intake & Output 11/01/18 11/02/18 11/02/18 18:59 06:59 18:59 Intake Total 500 910 Balance 500 910 Intake: Oral 500 910 Other: Voiding Method Toilet # Voids 2 2 - Exam GENERAL: The patient is alert and oriented x3, not in any acute distress. Well developed, well nourished. HEENT: Pupils are round and equally reacting to light. EOMI. No scleral icterus. No conjunctival pallor. Normocephalic, atraumatic. No pharyngeal erythema. No thyromegaly. CARDIOVASCULAR: S1 and S2 present. No murmurs, rubs, or gallops. PULMONARY: Chest is clear to auscultation, no wheezing or crackles. -ABDOMEN: Soft, LLQ tenderness, no rebound tenderness or guarding, nondistended, normoactive bowel sounds. No palpable organomegaly. MUSCULOSKELETAL: No joint swelling or deformity. EXTREMITIES: No cyanosis, clubbing, or pedal edema. NEUROLOGICAL: Gross neurological examination did not reveal any focal deficits. SKIN: No rashes. - Labs CBC & Chem 7: 11/02/18 08:42 11/02/18 08:42 Labs: Abnormal Lab Results - Last 24 Hours (Table) 11/02/18 11/02/18 Range/Units 08:42 08:42 RBC 3.73 L (3.80-5.40) m/uL Hgb 10.8 L (11.4-16.0) gm/dL Hct 32.8 L (34.0-46.0) % Lymphocytes # 0.8 L (1.0-4.8) k/uL BUN 3 L (7-17) mg/dL Glucose 111 H (74-99) mg/dL Assessment and Plan Assessment: Acute diverticulitis, improving Bilateral ovarian cyst. The patient has follow-up appointment with her patient access specialist on November 11 History of endometriosis History of GERD Plan: This is a pleasant 48 years old female who presents with acute diverticulitis. Continue with Zosyn. Surgery team are following the patient. Advanced diet as tolerated to regular diet. Pain management. Continue with IV hydration. Patient to follow-up with her patient access specialist as an outpatient. Labs and medication were reviewed.. Continue same treatment. Continue with symptomatic treatment. Resume home medication. Monitor lytes and vitals. DVT and GI prophylaxis. Further recommendations of the clinical course of the patient DVT prophylaxis: Subcutaneous heparin GI Prophylaxis: Protonix Prognosis is guarded Dr. lee will resume the care of the patient tomorrow
[2018-11-02] MEDS ORDERED: PRIMIDONE 50 MG TAB PO SCH (21:00)
[2018-11-03] MEDS: KETOROLAC 30 MG/ML 1 ML VIAL IVP SCH ×2 (02:23→07:26)
[2018-11-03 02:32] VITALS: TEMP 97.9
[2018-11-03] MEDS: SUCRALFATE 1 GM TAB PO SCH (07:25)
[2018-11-03] MEDS: PANTOPRAZOLE 40 MG/10 ML VIAL IVP SCH (08:34)
[2018-11-03] MEDS: PIPERACILLIN-TAZOBACTAM 3.375 GM in SODIUM CHLORIDE 0.9% 100 ML IVPB SCH (08:51)
[2018-11-03 09:24] VITALS: BP 120/77; PULSE 70
--- NOTE | 2018-11-03 10:59 | P.DS ---
Providers Date of admission: 10/30/18 14:48 Expected date of discharge: 11/03/18 Attending physician: Elliot Vidal MD Consults: 10/30/18 14:48 Consult Physician Routine Consulting Provider: Seth Gary Consult Reason/Comments: known Do you want consulting provider notified?: Yes Primary care physician: Lauren Porter [facility] Course: Final Diagnoses: (1) Diverticulitis Current Visit: Yes Status: Acute Code(s): K57.92 - DVTRCLI OF INTEST, PART UNSP, W/O PERF OR ABSCESS W/O BLEED SNOMED Code(s): 208643392 (2)-Gastritis secondary to chronic NSAID use (3) GERD (gastroesophageal reflux disease) Current Visit: Yes Status: Acute Code(s): K21.9 - GASTRO-ESOPHAGEAL REFLUX DISEASE WITHOUT ESOPHAGITIS SNOMED Code(s): 879908340 (4) Dysmenorrhea Current Visit: Yes Status: Acute Code(s): N94.6 - DYSMENORRHEA, UNSPECIFIED SNOMED Code(s): 291819973 (5)Bilateral ovarian cyst. The patient has follow-up appointment with her sales representative livestock on November 11 Hospital course:Meryl Pickett is a 48 yo F with PMH significant for endometriosis, GERD who presented to [facility] ED complaining of worsening abdominal pain. She states that ever since having an endometrial ablation a few months ago she has been having dysmenorrhea and taking naprosyn approx 2 weeks out of every month. Due to this she had started to have more/worsened abdominal pain so recently underwent an EGD and colonoscopy. Her EGD showed mild gastritis and colonoscopy remarkable only for diverticulosis. Since undergoing her procedures 4 days ago, she has noted continued LLQ which worsened yesterday to be severe with associated nausea and malaise. She also vomited once. Denies hematochezia or melena. On presentation to the ED, vitals stable, WBC 9.8, CT did show diverticulitis. She was started on zosyn. This am, she continues to complain of abdominal pain which is improved from yesterday. No feves or chills. Her appetite is improving. Maintained on IV antibiotics with significant clinical improvement. Cleared by surgery for discharge. Patient is being discharged home in a stable condition with guarded prognosis. EXAM: General: Alert and oriented 3, no acute distress Lungs: normal respiratory effort, no wheezes or rales CV: Regular rate and rhythm, no murmur. Peripheral pulses 2+ Abdomen: soft, nondistended,nontender, Positive BS Neuro:No Neuro deficits The impression and plan of care has been dictated as directed. : I performed a history and examination of this patient, discussed the same with the dictator. I agree with the dictator's note ,documented as a scribe. Any additional findings or plans will be noted. Time taken: 35 minutes Patient Condition at Discharge: Stable Plan - Discharge Summary Discharge Rx Participant: Yes New Discharge Prescriptions: New Sucralfate [Carafate] 1 gm PO AC-BID #60 tab Pantoprazole Sodium [Protonix] 40 mg PO DAILY #30 tablet. Naproxen Sodium [Aleve] 220 mg PO DAILY 5 Days tablet Continue traMADol HCL [Ultram] 50 mg PO DAILY PRN PRN Reason: Pain L.acidoph,Paracasei, B.lactis [Probiotic] 1 cap PO DAILY Acetaminophen Tab [Tylenol] 1,000 mg PO TID PRN PRN Reason: Pain Discharge Medication List Acetaminophen Tab [Tylenol] 1,000 mg PO TID PRN 10/30/18 [History] L.acidoph,Paracasei, B.lactis [Probiotic] 1 cap PO DAILY 10/30/18 [History] traMADol HCL [Ultram] 50 mg PO DAILY PRN 10/30/18 [History] Naproxen Sodium [Aleve] 220 mg PO DAILY 5 Days tablet 11/03/18 [Rx] Pantoprazole Sodium [Protonix] 40 mg PO DAILY #30 tablet. 11/03/18 [Rx] Sucralfate [Carafate] 1 gm PO AC-BID #60 tab 11/03/18 [Rx] Follow up Appointment(s)/Referral(s): [employer]ANCIAL [employer] OFFICER,. Pt's own [Other] - 1 Week Lauren Porter DO [Primary Care Provider] - 3 Days (November 06 at 10am) Seth Gary MD [STAFF PHYSICIAN] - 1 Week (November AT 4pm) Patient Instructions/Handouts: Gastritis (DC), Diverticulitis (DC), Colitis (ED) Activity/Diet/Wound Care/Special Instructions: Levaquin and Flagyl manual Rxs provided by Dr. Lawton Hydrocortisone HC cream to rash Diet: Low residue Yogurt Between meals and daily at bedtime
== END 2018-11-03 10:50 | disposition home or self-care (01) | DRG 392 ==
LOC: EC 11:20 → 4SSUR 14:48 → 6PED 11-01 19:43
PROVIDERS: ADMIT Family Medicine; ATTEND Family Medicine
DX: K57.32 Diverticulitis of large intestine without perforation or abscess without bleeding (principal); K21.9 Gastro-esophageal reflux disease without esophagitis; K29.70 Gastritis, unspecified, without bleeding; T39.395A Adverse effect of other nonsteroidal anti-inflammatory drugs [NSAID], initial encounter; N83.201 Unspecified ovarian cyst, right side; N83.202 Unspecified ovarian cyst, left side; N94.6 Dysmenorrhea, unspecified; Z79.1 Long term (current) use of non-steroidal anti-inflammatories (NSAID); Y92.9 Unspecified place or not applicable; Z98.890 Other specified postprocedural states; Z98.891 History of uterine scar from previous surgery; Z90.89 Acquired absence of other organs; Z80.0 Family history of malignant neoplasm of digestive organs; Z87.891 Personal history of nicotine dependence; Z98.51 Tubal ligation status
CPT/HCPCS: 36415; 74177; 76705; 80048; 80053; 81003; 82150; 83605; 83690; 83735; 84100; 84703; 85025; 87491; 87591; 96361; 96372; 96374; 96375; 96376; 99285

== ENCOUNTER → 2018-11-21 | Outpatient (CLI) | payer OTHER ==
[2018-11-21 09:46] LABS: Basophils % (A) 1 %; Eosinophils # (A) 0.1 k/uL (0-0.7); Eosinophils % (A) 2 %; HCT 40.1 % (34.0-46.0); HGB 12.8 gm/dL (11.4-16.0); Lymphocytes # (A) 1.3 k/uL (1.0-4.8); Lymphocytes % (A) 24 %; MCH 29.2 pg (25.0-35.0); MCV 91.3 fL (80.0-100.0); Mean Platelet Volume 6.6; Monocytes # (A) 0.3 k/uL (0-1.0); Monocytes % (A) 6 %; Neutrophils # (A) 3.5 k/uL (1.3-7.7); Neutrophils % (A) 65 %; Platelet Count 341 k/uL (150-450); RBC 4.39 m/uL (3.80-5.40); RDW 14.6 % (11.5-15.5); WBC 5.3 k/uL (3.8-10.6)
[2018-11-21 09:55] LABS: African American GFR (CKD) >90 (>60 ml/min/1.73 sqM); Anion Gap 10 mmol/L; Blood Urea Nitrogen 11 mg/dL (7-17); Carbon Dioxide 27 mmol/L (22-30); Chloride 102 mmol/L (98-107); Glucose 107 mg/dL (74-99); Sodium 139 mmol/L (137-145)
== END | disposition home or self-care (01) ==
LOC: LABPAT 09:06
PROVIDERS: ATTEND Obstetrics & Gynecology
DX: Z01.812 Encounter for preprocedural laboratory examination (principal); D25.9 Leiomyoma of uterus, unspecified; N80.0 Endometriosis of uterus
CPT/HCPCS: 36415; 80051; 82565; 82947; 84520; 85025; 87086

== ENCOUNTER 2018-11-24 05:59 | Inpatient (IN) | payer OTHER ==
[2018-11-17 14:15] VITALS: BMI 29.2
[~2018-11-24 05:59] MED LIST: DEXAMETHASONE SOD PHOSPHATE 10 MG/ML 1 ML VIAL IV ONE; LIDOCAINE 1% 20 ML VIAL (10MG/ML) FOR IV START INTRADERMA PRN; ONDANSETRON 4 MG/2 ML VIAL IVP ONE; SCOPOLAMINE 1.5MG/72HR PATCH TRANSDERM ONE
[2018-11-24] MEDS ORDERED: LACTATED RINGERS 1,000 ML IV ONE ×2 (06:20→08:40)
[2018-11-24] MEDS ORDERED: MIDAZOLAM PF (FBP) 2 MG/2 ML VIAL IVP ONE (06:55)
[2018-11-24] MEDS ORDERED: fentaNYL (PF) 50 MCG/ML 2 ML AMP IVP ONE (06:55)
[2018-11-24] MEDS ORDERED: MORPHINE SULFATE (PF) 0.3 MG/0.3 ML SYR ONE (07:20)
[2018-11-24] MEDS ORDERED: KETOROLAC 30 MG/ML 1 ML VIAL ONE (07:20)
[2018-11-24] MEDS ORDERED: PROPOFOL 10 MG/ML 20 ML VIAL IV ONE (07:20)
[2018-11-24] MEDS ORDERED: fentaNYL (PF) 50 MCG/ML 2 ML AMP ONE (07:20)
[2018-11-24] MEDS ORDERED: LIDOCAINE 1% INJ 10MG/ML (20 ML MDV) ONE (07:20)
[2018-11-24] MEDS ORDERED: SUCCINYLCHOLINE CHLORIDE 100 MG/5 ML SYR IV ONE (07:20)
[2018-11-24] MEDS ORDERED: KETOROLAC 30 MG/ML 1 ML VIAL IVP PRN (07:29)
[2018-11-24] MEDS ORDERED: HYDROmorphone 0.5 MG/0.5 ML SYRINGE IVP PRN (07:29)
[2018-11-24] MEDS ORDERED: NALOXONE 0.4 MG/ML 1 ML VIAL IV PRN (07:29)
[2018-11-24] MEDS ORDERED: VASOPRESSIN 20 UNIT/ML 1 ML VIAL SQ ONE (07:45)
[2018-11-24] MEDS ORDERED: BACITRACIN 500 UNIT/GM OINT 28.4 GM TUBE TOPICAL ONE (07:45)
[2018-11-24] MEDS ORDERED: ONDANSETRON 4 MG/2 ML VIAL IVP PRN (09:08)
[2018-11-24] MEDS ORDERED: SIMETHICONE 80 MG CHEWABLE PO PRN (09:08)
[2018-11-24] MEDS ORDERED: ZOLPIDEM 5 MG TAB PO PRN (09:08)
--- NOTE | 2018-11-24 09:08 | P.OP ---
Date of Procedure: 11/24/18 Preoperative Diagnosis: Severe dysmenorrhea, fibroid uterus Postoperative Diagnosis: Same, normal-appearing ovaries bilaterally Procedure(s) Performed: Vaginal hysterectomy Anesthesia: SHAQUILLE Surgeon: Mariela Blanchard Fixing Carpenter #1: Anai Dumont Estimated Blood Loss (ml): 130 IV fluids (ml): 1,000 Urine output (ml): 140 Pathology: other (Cervix and uterus) Condition: stable Disposition: PACU Operative Findings: Small hemorrhagic right ovarian cyst, normal-appearing left ovary Description of Procedure: Patient is brought to the operating room after a spinal with Duramorph is p laced. She is positioned in the dorsal lithotomy position and a general anesthetic is administered. Antibiotics are given. The appropriate timeout is performed to assure proper patient and procedural identification. Urine hCG is negative. The perineal body is prepped and draped in the usual sterile fashion. Bladder is drained for approximately 100 mL of clear yellow urine. Weighted speculum was placed into the vagina and the anterior lip of the cervix is grasped with a double-tooth tenaculum. The cervix is injected circumferentially with a dilute Pitressin solution. A [place] blade scalpel is used and the mucosa is incised circumferentially with a V positioning at 6:00. A sponge rolled finger is used to sweep the mucosa from the underlying fascial plane. Peritoneum is entered at 6:00 and suture tied with 2-0 Vicryl. The weighted speculum is then placed. The right uterosacral cardinal ligament is identified, clamped cut and suture ligated. It is held with a hemostat laterally. The same procedure is carried out on the left uterosacral cardinal ligament. Uterine vasculature is next identified, it is clamped cut and suture ligated. 2 additional pedicles are taken superior to these vessels. The uterus is then "walked out" posteriorly. The anterior peritoneum is entered. Hi clamps are used across the final pedicles and the specimen is removed and sent to pathology. In inspecting the ovaries, there is a right hemorrhagic ovarian cyst noted. The surface of it is gently cauterized. The ovary as high, hemostasis appears adequate. However FloSeal is placed on this region prior to closure to aid in additional hemostasis. The left ovary appears normal. The peritoneum is closed circumferentially in a pursestring fashion. The uterosacral cardinal ligaments are brought across to incorporate the opposite ligament as well as vaginal mucosa. 3 additional [id number] sutures are used for final cuff closure. The vagina is packed with one-inch iodophor gauze and basic tracing. Baumann is placed and urine is clear. All sponge needle and enhancement counts are correct at the end of the procedure. Patient is brought back to the recovery room in very good condition with stable vital signs including blood pressure 121/74, pulse 63.
[2018-11-24] MEDS ORDERED: ACETAMINOPHEN TAB 325 MG TAB PO PRN (09:10)
[2018-11-24] MEDS: HYDROmorphone 0.5 MG/0.5 ML SYRINGE IVP PRN ×4 (09:30→10:15)
[2018-11-24] MEDS ORDERED: ONDANSETRON 4 MG/2 ML VIAL IVP ONE (09:35)
[2018-11-24] MEDS: LACTATED RINGERS 1,000 ML IV SCH ×2 (11:20→20:31)
[2018-11-24] MEDS: KETOROLAC 30 MG/ML 1 ML VIAL IVP PRN (16:00)
[2018-11-24] MEDS: diphenhydrAMINE 50 MG/ML 1 ML VIAL IVP PRN (16:47)
[2018-11-24] MEDS ORDERED: NALBUPHINE 10 MG/ML (1 ML AMP) IM ONE (20:00)
[2018-11-25] MEDS: diphenhydrAMINE 50 MG/ML 1 ML VIAL IVP PRN (00:01)
[2018-11-25] MEDS: SENNOSIDES-DOCUSATE SODIUM 1 EACH TAB PO SCH ×2 (03:51→09:55)
[2018-11-25 05:49] VITALS: RESP 16
[2018-11-25 07:17] VITALS: BP 107/67; PULSE 66; TEMP 98.3
--- NOTE | 2018-11-25 07:55 | P.DS ---
Providers Date of admission: 11/24/18 05:59 Expected date of discharge: 11/25/18 Attending physician: Mariela Blanchard Primary care physician: [facility] Course: This is a 48-year-old white female 2 para 2001 who presented with a history of severe dysmenorrhea and fibroid uterus. She has had 2 previous sections, however the was a small amount of uterine descensus and are decision was to attempt vaginal hysterectomy. Please see my dictated history and physical for details. Yesterday patient underwent vaginal hysterectomy. There was a small hemorrhagic right ovarian cysts that was lanced. Left ovary appeared normal. Baumann catheter was placed and vaginal packing was placed as well. Please see my dictated operative note for details. Spinal with Duramorph was utilized. This morning the patient feels well. She is voiding, ambulating, passing flatus without difficulty. Vital signs are stable and she is afebrile. Abdomen is soft and nontender, no CVA tenderness. Extremities are negative for edema. Chest is clear in all najera. Patient feels very well and is judged to be in excellent condition for discharge home. She will follow-up with me in the office in 2 weeks. I have reminded her no intercourse, tampons or douching. She will use [id number] Aleve, Advil, or Motrin as needed for pain. She will call with any fevers shakes or chills, bloody vaginal drainage, with any issues with urination or defecation, or indeed with any concerns. Patient Condition at Discharge: Good Plan - Discharge Summary New Discharge Prescriptions: No Action L.acidoph,Paracasei, B.lactis [Probiotic] 1 cap PO DAILY Acetaminophen Tab [Tylenol] 1,000 mg PO TID PRN PRN Reason: Pain Discharge Medication List Acetaminophen Tab [Tylenol] 1,000 mg PO TID PRN 10/30/18 [History] L.acidoph,Paracasei, B.lactis [Probiotic] 1 cap PO DAILY 10/30/18 [History] Follow up Appointment(s)/Referral(s): Mariela Blanchard MD [STAFF PHYSICIAN] - 2 Weeks Patient Instructions/Handouts: *Sur[facility] - Scopalamine Patch Instructions
[2018-11-25] MEDS: KETOROLAC 30 MG/ML 1 ML VIAL IVP PRN ×2 (08:11)
--- NOTE | 2018-11-25 11:31 | P.PN ---
Progress Note - Text Anesthesia POD 1, 644. Patient is status post vaginal hysterectomy under general endotracheal anesthesia with intra-thecal preservative free morphine 300 g. Moderate pruritus, excellent post-op analgesia, and no headache or other complications.
== END 2018-11-25 12:27 | disposition home or self-care (01) | DRG 743 ==
LOC: 2ORMAIN 05:59 → EDSTATUS 09:00 → 4FBP 09:07
PROVIDERS: ADMIT Obstetrics & Gynecology; ATTEND Obstetrics & Gynecology
PROC: 0UT97ZZ Resection of Uterus, Via Natural or Artificial Opening (ICD-10-PCS; principal; 2018-11-24 07:30)
DX: D25.9 Leiomyoma of uterus, unspecified (principal); N83.201 Unspecified ovarian cyst, right side; N94.6 Dysmenorrhea, unspecified; L29.9 Pruritus, unspecified; K21.9 Gastro-esophageal reflux disease without esophagitis; Z98.891 History of uterine scar from previous surgery; Z80.0 Family history of malignant neoplasm of digestive organs
CPT/HCPCS: 81025; 86850; 86900; 86901; 88307

== ENCOUNTER → 2019-01-31 | Outpatient (CLI) | payer OTHER, BC ==
--- NOTE | 2019-01-31 20:15 | CT ---
EXAMINATION TYPE: CT abdomen pelvis w con DATE OF EXAM: 01/31/2019 COMPARISON: 10/30/2018 INDICATION: abdominal pain. hx of diverticulitis. DLP: 858.6 mGycm, Automated exposure control for dose reduction was used. CONTRAST: 100 mL of Isovue 300. Study performed with Oral Contrast TECHNIQUE: Axial images were obtained from above the diaphragm to the pubic rami in the axial plane a t 5 mm thick sections. Reconstructed images are reviewed on the computer in the coronal plane. FINDINGS: Limited CT sections are obtained the lung bases. The lung bases are clear. CT ABDOMEN: Liver: There is a 0.7 cm cyst on the right lobe liver. Spleen: Normal Pancreas: Normal Adrenal glands: The adrenal glands are normal. Gallbladder: Normal Kidneys: No masses are evident. No hydronephrosis is present. No cysts are present. Delayed images were obtained through the kidneys, which remain unremarkable. Aorta: Normal Inferior vena cava: Normal. CT PELVIS: Loops of bowel within the abdomen and pelvis are normal. There are loops of bowel which are incom pletely distended or lack oral contrast limiting their evaluation. Appendix: Normal as visualized. Urinary bladder: Normal. Genitourinary structures: There is a 3.1 cm cyst on the right ovary. May been present in October. Additi onal workup is recommended. Uterus appears small, correlate with surgical history. Partial hysterecto my may be present. A left ovarian cyst measuring 3.4 cm is present. Osseous structures: No suspicious lytic or sclerotic lesions. IMPRESSIONS: 1. Bilateral ovarian cysts present previously. Additional workup is recommended.
== END | disposition home or self-care (01) ==
LOC: RADCTMAIN 13:17
PROVIDERS: ATTEND Surgery
DX: K57.32 Diverticulitis of large intestine without perforation or abscess without bleeding (principal)
CPT/HCPCS: 74177; Q9967

== ENCOUNTER → 2019-03-02 | Outpatient (CLI) | payer OTHER, BC ==
--- NOTE | 2019-03-03 11:15 | MM ---
Reason for exam: screening (asymptomatic). Last mammogram was performed 2 years and 4 months ago. History: Patient has history of other cancer at age 47. Family history of breast cancer in paternal cousin, breast cancer in paternal grandmother, and breast cancer in maternal grandmother. Taking hormonal contraceptives beginning at age 48. Physical Findings: A clinical breast exam by your physician is recommended on an annual basis and results should be correlated with mammographic findings. MG 3D Screening Mammo W/Cad Bilateral CC and MLO view(s) were taken. Prior study comparison: February 16, 2014, bilateral MG screening mammo w CAD. November 19, 2012, CAD bilateral diagnostic mammogram. The breast tissue is heterogeneously dense. This may lower the sensitivity of mammography. There is chronic nodularity in the left breast laterally on 3D images is stable. Superior posterior asymmetric density left MLO view persists on 3D images. Futher evaluation recommended. ASSESSMENT: Incomplete: need additional imaging evaluation, BI-RAD 0 RECOMMENDATION: Special view mammogram of the left breast. (3D) If lesion persists on supplemental views, image directed ultrasound is recommended. [facility] will attempt to contact patient to return for supplemental views and ultrasound if indicated.
== END | disposition home or self-care (01) ==
LOC: RADMAMWWP 14:35
PROVIDERS: ATTEND Obstetrics & Gynecology
DX: Z12.31 Encounter for screening mammogram for malignant neoplasm of breast (principal)
CPT/HCPCS: 77063; 77067

== ENCOUNTER → 2019-03-10 | Outpatient (CLI) | payer OTHER, BC ==
--- NOTE | 2019-03-10 11:33 | MM ---
Reason for exam: additional evaluation requested from abnormal screening. Last mammogram was performed less than 1 month ago. History: Patient has history of other cancer at age 47. Family history of breast cancer in paternal cousin, breast cancer in paternal grandmother, and breast cancer in maternal grandmother. Taking hormonal contraceptives beginning at age 48. Physical Findings: Nurse did not find any significant physical abnormalities on exam. MG 3D Work Up W/Cad LT LM and spot compression MLO view(s) were taken of the left breast. Prior study comparison: March 02, 2019, bilateral MG 3d screening mammo w/cad. October 24, 2016, mammogram. No distinct lesion persists in the left upper outer quadrant. These results were verbally communicated with the patient and result sheet given to the patient on 03/10/19. ASSESSMENT: Benign, BI-RAD 2 RECOMMENDATION: Return to routine screening mammogram schedule for both breasts.
== END | disposition home or self-care (01) ==
LOC: RADMAMWWP 10:28
PROVIDERS: ATTEND Obstetrics & Gynecology
DX: R92.8 Other abnormal and inconclusive findings on diagnostic imaging of breast (principal)
CPT/HCPCS: 77061; 77065

== ENCOUNTER → 2020-06-08 | Outpatient (CLI) | payer BC ==
--- NOTE | 2020-06-08 18:38 | CONS ---
CONSULTATION DATE OF SERVICE: 06/08/2020 This is a 50-year-old lady who has been evaluated in Sleep Center for possible obstructive sleep apnea-hypopnea syndrome. HISTORY OF PRESENT ILLNESS/SLEEP-WAKE EVALUATION: Patient's usual sleep schedule on working days is from 10:30 p.m. to 7:15 a.m. and on weekends from midnight until 9 or 9:30 a.m. Usually no problems with falling asleep, although she has a TV in the bedroom. She usually sleeps in different positions, including back, side and stomach. She snores loudly, according to her , and has episodes of stopped breathing during sleep, according to him. Positive history of sleeptalking, sweating. The patient wakes up from sleep more than 3 times with a dry mouth and one time with nocturia. No history of hypnagogic hallucinations, sleep paralysis or cataplexy. In the morning the patient wakes up tired, has difficulties paying attention, problems with memory, depression, anxiety, claustrophobia. Williams Sleepiness Scale is increased to 11. Questionable episodes of aggressive behavior during sleep. PAST MEDICAL HISTORY: Positive for hypertension. PAST SURGICAL HISTORY: , hysterectomy, tonsillectomy, adenoidectomy. SOCIAL HISTORY: Positive for smoking in the past; quit 10 years ago. Alcohol consumption: None. FAMILY HISTORY: Hypertension, heart problems, thyroid problems, mental illness, cancer. REVIEW OF SYSTEMS: Multiple awakenings from sleep, sleepiness during the day, loud snoring, witnessed episodes of stopped breathing. PHYSICAL EXAMINATION: GENERAL: A pleasant lady without distress. VITAL SIGNS: BP 115/71, HR 71, RR 15, height 5 feet 5 inches, weight 194.8 pounds, body mass index 32.4, temperature 96.8, oxygen saturation at room air 98%. HEENT: PERRLA, EOMI. Evaluation of oropharynx showed tongue protrudes midline. Moderately low position of soft palate. NECK: Supple. No JVD. Thyroid is not palpable. Neck measures 14-1/2 inches in circumference. LUNGS: Clear to percussion and to auscultation. Good air exchange. No wheezing or rhonchi. HEART: S1, S2 regular. No murmurs, gallops or rubs. ABDOMEN: Slightly obese. EXTREMITIES: No clubbing or cyanosis. STRAPPER: Awake, alert, and oriented X3. Cranial nerves 2 to 7 intact. There is no fasciculation or atrophy. noted. No focal deficits observed. IMPRESSION: 1. Loud snoring, witnessed episodes of stopped breathing during sleep, multiple awakenings from sleep, sleepiness during the day, Williams Sleepiness Scale of 11; obstructive sleep apnea-hypopnea syndrome. 2. Hypertension. 3. Mild obesity; BMI 32.4. 4. Status post hysterectomy in 2019. 5. Status post tonsillectomy and adenoidectomy in 2003. 6. Status post . PLAN: 1. Home sleep apnea test for evaluation of patient's breathing during sleep to confirm obstructive sleep apnea-hypopnea syndrome. 2. Following plan after reviewing the results of sleep study. 3. Losing weight. 4. Sleep hygiene with regular time in bed for at least 7-1/2 to 8 hours. 5. No driving if feeling sleepiness. Thank you very much for allowing me to participate in the management of your patient. Sincerely, Robin Hernandez MD, PhD, FAASM Diplomat of [employer] Dross Puller of [facility] [place] MMODL / IJN: [id number] /
== END ==
LOC: SLEEP 15:31
PROVIDERS: ATTEND Internal Medicine
DX: G47.33 Obstructive sleep apnea (adult) (pediatric) (principal); I10 Essential (primary) hypertension; E66.01 Morbid (severe) obesity due to excess calories; Z68.32 Body mass index [BMI] 32.0-32.9, adult; Z87.828 Personal history of other (healed) physical injury and trauma; Z90.710 Acquired absence of both cervix and uterus; Z90.89 Acquired absence of other organs; Z98.890 Other specified postprocedural states
CPT/HCPCS: 99211

== ENCOUNTER → 2020-08-11 | Outpatient (CLI) | payer BC ==
--- NOTE | 2020-08-11 23:13 | SFUN ---
SLEEP CENTER FOLLOW UP NOTE DATE OF SERVICE: 08/11/2020 This 50-year-old lady has been followed in Sleep Center for treatment of obstructive sleep apnea-hypopnea syndrome. Recently the patient had a diagnostic home sleep test which showed mild obstructive sleep apnea-hypopnea syndrome, and because the patient has symptoms of significant excessive daytime sleepiness and hypertension, she was started on treatment with AutoPAP. Today is her first visit after she was started on treatment with AutoPAP. The patient has significant problems related to the mask. She tried different masks, but she had difficulties with the pressure and with the mask. I checked her CPAP unit. It is in automatic regimen 5 to 15. The patient used it only 3 nights, with average time 1.1 hour per night. Average pressure is 4.7. Leak is 13 L/minute, which is borderline. Apnea-hypopnea index is 1.8, which is normal. MEDICATIONS: 1. Bisoprolol. 2. Trintellix. [place] Sleepiness Scale significantly increased to 18. PHYSICAL EXAMINATION: GENERAL: A pleasant patient in no distress. VITAL SIGNS: BP 124/56, HR 62, RR 12, height 5 feet 5 inches, weight 194, temperature 97.3, oxygen saturation at room air 96%. HEENT: PERRLA, EOMI. Evaluation of oropharynx showed tongue protrudes midline. Moderately low position of soft palate. NECK: Supple. No JVD. Thyroid is not palpable. LUNGS: Clear to percussion and to auscultation. Good air exchange. No wheezing or rhonchi. HEART: S1, S2 regular. No murmurs, gallops or rubs. ABDOMEN: Slightly obese. EXTREMITIES: No clubbing or cyanosis. THREAD ROLLER: Awake, alert, and oriented X3. Cranial nerves 2 to 7 intact. There is no fasciculation or atrophy. noted. No focal deficits observed. IMPRESSION: 1. Mild obstructive sleep apnea-hypopnea syndrome. 2. Symptoms of significant excessive daytime sleepiness. 3. Hypertension. 4. Mild obesity. 5. Anxiety. 6. Status post hysterectomy in 2018. 7. Status post tonsillectomy and adenoidectomy in 2003. 8. Status post section. PLAN: 1. I adjusted RAMP to the maximal time, 45 minutes. I changed the regimen of the pressure from 4 to maximal 6 cm of water with a C-flex option 3. 2. I tried the patient in the office on the CPAP with a pressure of 4. She feels that it was enough pressure for her, but she sometimes had difficulties with exhalation, which is most probably related to psychological issues. PLAN: 1. Desensitization with a nasal pillow mask. I explained to the patient in detail how to proceed with the desensitization. 2. Patient will try to use the CPAP every night for the whole night after desensitization. 3. Watching and losing weight. 4. Sleep hygiene with regular time in bed for 7-1/2 to 8 hours. 5. No driving if feeling any sleepiness. 6. I will see the patient for follow-up visit in 2 months to evaluate her clinical response on treatment with CPAP, to check if her sleepiness decreases while on treatment with CPAP. Thank you very much for allowing me to participate in the management of your patient. Sincerely, Robin Hernandez MD, PhD, FAASM Diplomat of [employer] Annealing Torch Operator of [facility] [place] MMODL / SHIRLEYN: [id number] /
== END ==
LOC: SLEEP 15:50
PROVIDERS: ATTEND Internal Medicine
DX: G47.33 Obstructive sleep apnea (adult) (pediatric) (principal); I10 Essential (primary) hypertension; E66.9 Obesity, unspecified; F41.9 Anxiety disorder, unspecified; Z90.710 Acquired absence of both cervix and uterus; Z90.89 Acquired absence of other organs; Z98.891 History of uterine scar from previous surgery; Z87.891 Personal history of nicotine dependence; Z98.890 Other specified postprocedural states

== ENCOUNTER → 2020-10-28 | Outpatient (CLI) | payer BC ==
--- NOTE | 2020-10-30 09:09 | CT ---
EXAMINATION TYPE: CT abdomen pelvis w con DATE OF EXAM: 10/28/2020 COMPARISON: 01/31/2019 HISTORY: abd bloating, elevated CA antigen CT DLP: 1200.9 mGycm CONTRAST: CT scan of the abdomen and pelvis is performed with Oral Contrast and with IV Contrast, patient injec niyah with 100 mL of Isovue 300. FINDINGS: LUNG BASES-: No visible nodule. No infiltrate. LIVER/GB: No calcified gallstones. No space occupying hepatic lesion. Biliary tree is of normal ca liber. PANCREAS: No inflammation. No distinct mass. SPLEEN: No splenic enlargement. No lesion seen. ADRENALS: No nodule. No thickening. KIDNEYS/BLADDER: No hydronephrosis. No nephrolithiasis. No distinct renal mass. Urinary bladder g rossly unremarkable. BOWEL: Normal appendix. Normal bowel caliber. No inflammation. GENITAL ORGANS: Persistent mass right ovary appears more solid on today's study measures 3.5 x 3.3 cm maximal dimension of 3.1 cm previously. Further evaluation of the pelvic ultrasound is advised. No l eft adnexal mass. Uterus is surgically absent. LYMPH NODES: No greater than 1cm abdominal or pelvic lymph nodes are appreciated. AORTA: No significant abnormality. OSSEOUS STRUCTURES: No significant abnormality is seen. OTHER: No significant additional abnormality is seen. IMPRESSION: 1. Persistent mass right ovary appears more solid on today's study measures 3.5 x 3.3 cm maximal dime nsion of 3.1 cm previously. Further evaluation of the pelvic ultrasound is advised.
== END | disposition home or self-care (01) ==
LOC: RADCTMAIN 17:27
PROVIDERS: ATTEND Family Medicine
DX: N83.9 Noninflammatory disorder of ovary, fallopian tube and broad ligament, unspecified (principal); R14.0 Abdominal distension (gaseous); R97.1 Elevated cancer antigen 125 [CA 125]
CPT/HCPCS: 74177; Q9967

== ENCOUNTER → 2020-11-14 | Outpatient (CLI) | payer BC | END | disposition home or self-care (01) | LOC: LABWHC1 11:14 | PROVIDERS: ATTEND Obstetrics & Gynecology | DX: N83.201 Unspecified ovarian cyst, right side (principal) | CPT/HCPCS: 36415 ==

== ENCOUNTER → 2020-11-30 | Outpatient (CLI) | payer BC ==
--- NOTE | 2020-12-01 12:16 | MM ---
Reason for exam: screening (asymptomatic). Last mammogram was performed 1 year and 9 months ago. History: Patient has history of other cancer at age 47. Family history of breast cancer in paternal cousin, breast cancer in paternal grandmother, and breast cancer in maternal grandmother. Taking hormonal contraceptives beginning at age 48. Physical Findings: A clinical breast exam by your physician is recommended on an annual basis and results should be correlated with mammographic findings. MG Screening Mammo w CAD Bilateral CC and MLO view(s) were taken. Prior study comparison: March 10, 2019, left breast MG 3d work up w/cad LT. March 02, 2019, bilateral MG 3d screening mammo w/cad. The breast tissue is heterogeneously dense. This may lower the sensitivity of mammography. There is no discrete abnormality. No significant changes when compared with prior studies. ASSESSMENT: Negative, BI-RAD 1 RECOMMENDATION: Routine screening mammogram of both breasts in 1 year.
== END | disposition home or self-care (01) ==
LOC: RADMAMWWP 09:49
PROVIDERS: ATTEND Family Medicine
DX: Z08 Encounter for follow-up examination after completed treatment for malignant neoplasm (principal); Z80.3 Family history of malignant neoplasm of breast
CPT/HCPCS: 77067

== ENCOUNTER → 2021-10-05 | Outpatient (CLI) | payer BC ==
--- NOTE | 2021-10-05 12:06 | US ---
EXAMINATION TYPE: US thyroid st tissue head/neck DATE OF EXAM: 10/05/2021 COMPARISON: NONE CLINICAL HISTORY: E04.1 NONTOXIC SINGLE THYROID NODULE. known nodules with h/o biopsy when living in [place] GLAND SIZE: Right Lobe: 5.4 x 2.0 x 1.2 cm Overall Parenchyma: heterogenous Left Lobe: 5.5 x 1.2 x 1.8 cm Overall Parenchyma: heterogeneous Isthmus Thickness: 0.3 cm NODULES RIGHT: # of nodules measured on right: 1 1. 0.7 X 0.5 x 0.3 cm, mid , mixed cystic and solid, anechoic nodule, which is wider than tall, wit h smooth margins, without echogenic foci. Prior size: SYRUP MIXER here LEFT: # of nodules measured on left: 0 ISTHMUS: # of nodules measured in the isthmus: 0 Bilateral neck scanned, no evidence of lymphadenopathy. IMPRESSION: Nonspecific subcentimeter mixed nodule right thyroid lobe. Glandular heterogeneity.
== END | disposition home or self-care (01) ==
LOC: RADUSWWP 11:30
PROVIDERS: ATTEND Otolaryngology
DX: E04.1 Nontoxic single thyroid nodule (principal)
CPT/HCPCS: 76536

== ENCOUNTER 2022-05-04 20:46 | Emergency (ER) | payer BC ==
[2022-05-04 20:53] VITALS: BP 164/83; PULSE 81; RESP 16; TEMP 98.1
[2022-05-04] MEDS ORDERED: SODIUM CHLORIDE 0.9% 1,000 ML IV STA (21:17)
[2022-05-04] MEDS ORDERED: LORazepam 2 MG/ML INJ IV STA (21:32)
--- NOTE | 2022-05-04 22:13 | ED ---
General Adult HPI - General Chief complaint: Neuro Symptoms/Deficit Stated complaint: "can feel my heart beat in my head" Time Seen by Provider: 05/04/22 21:08 Source: patient Mode of arrival: ambulatory Limitations: no limitations - History of Present Illness Initial comments: Patient is a 51-year-old female presenting with chief complaint of "I can feel my heart beat in my head". Patient states that she has had frequent episodes of feeling a pulsating sensation throughout her head, this is worse when she lays down. Patient also states that she had an episode of dizziness accompanied by feeling like a black curtain was coming over her vision. Patient felt like she was going to pass out the moment. She states that eventually symptoms calm down after about 15 minutes. She denies any numbness, tingling, weakness, chest pain, difficulty breathing. - Related Data Home Medications Medication Instructions Recorded Confirmed Acetaminophen Tab [Tylenol] 1,000 mg PO TID PRN 10/30/18 11/24/18 L.acidoph,Paracasei, B.lactis 1 cap PO DAILY 10/30/18 11/24/18 [Probiotic] Allergies Allergy/AdvReac Type Severity Reaction Status Date / Time No Known Allergies Allergy Verified 11/24/18 09:19 Review of Systems ROS Statement: Those systems with pertinent positive or pertinent negative responses have been documented in the HPI. ROS Other: All systems not noted in ROS Statement are negative. Past Medical History Past Medical History: Thyroid Disorder Additional Past Medical History / Comment(s): ovarian cysts, endometrial ablation; HAVING PAIN IN ABD AREA, HX OF THYROID NODULES, DOCTOR MONITORING History of Any Multi-Drug Resistant Organisms: None Reported Past Surgical History: Adenoidectomy, Section, Hysterectomy, Tonsillectomy, Uterine Ablation Past Anesthesia/Blood Transfusion Reactions: Postoperative Nausea & Vomiting (PO NV) Past Psychological History: No Psychological Hx Reported Past Alcohol Use History: Rare Past Drug Use History: None Reported - Past Family History Father Family Medical History: Cancer Additional Family Medical History / Comment(s): COLON CANCER General Exam Limitations: no limitations General appearance: alert, in no apparent distress Head exam: Present: atraumatic, normocephalic, normal inspection Eye exam: Present: normal appearance, PERRL, EOMI. Absent: scleral icterus, conjunctival injection, periorbital swelling Pupils: Present: normal accommodation Neck exam: Present: normal inspection, full ROM Respiratory exam: Present: normal lung sounds bilaterally. Absent: respiratory distress, wheezes, rales, rhonchi, stridor Cardiovascular Exam: Present: regular rate, normal rhythm, normal heart sounds. Absent: systolic murmur, diastolic murmur, rubs, gallop, clicks Neurological exam: Present: alert, oriented X3, CN II-XII intact Expanded Patient oriented to: Present: person, place, time Speech: Present: fluid speech Cranial nerves: EOM's Intact: Normal, Facial Sensation: Normal Sensory exam: Upper Extremity Light Touch: Normal, Lower Extremity Light Touch: Normal Motor strength exam: RUE: 5, LUE: 5, RLE: 5, LLE: 5 Eye Response: (4) open spontaneously Motor Response: (6) obeys commands Verbal Response: (5) oriented [place] Total: 15 Psychiatric exam: Present: normal affect, normal mood Skin exam: Present: warm, dry, intact, normal color. Absent: rash Course Vital Signs 05/04/22 20:49 Temperature 98.1 F Pulse Rate 81 Respiratory 16 Rate Blood Pressure 164/83 O2 Sat by Pulse 98 Oximetry EKG Findings - EKG Comments: EKG Findings:: Sinus rhythm ventricular rate 63. W[place] interval 183. QRS 78. QT 403. QTc 411. No ST deviation or T wave inversion. Medical Decision Making - Medical Decision Making Was pt. sent in by a medical professional or institution (ELLIS Taylor, GEOGRAPHY TEACHER, urgent care, hospital, or half-way...) When possible be specific @ -No Did you speak to anyone other than the patient for history (EMS, parent, family, police, friend...)? What history was obtained from this source @ -No Did you review nursing and triage notes (agree or disagree)? Why? @ -I reviewed and agree with nursing and triage notes Were old charts reviewed (outside hosp., previous admission, EMS record, old EKG, old radiological studies, urgent care reports/EKG's, half-way records)? Report findings @ -No old charts were reviewed Differential Diagnosis (chest pain, altered mental status, abdominal pain women, abdominal pain men, vaginal bleeding, weakness, fever, dyspnea, syncope, headache, dizziness, GI bleed, back pain, seizure, CVA, palpatations, mental health)? @ -Differential includes benign pulsatile tinnitus, AVM, aneurysm, carotid stenosis or dissection, this is not an all inclusive list EKG interpreted by me (3pts min.). @ -As above X-rays interpreted by me (1pt min.). @ -None done CT interpreted by me (1pt min.). @ -No, radiologist report is reviewed. Negative CT angiogram of the head and neck as well as negative and noncontrast enhanced CT of the brain U/S interpreted by me (1pt. min.). @ -None done What testing was considered but not performed or refused? (CT, X-rays, U/S, labs)? Why? @ -None What meds were considered but not given or refused? Why? @ -None Did you discuss the management of the patient with other professionals (professionals i.e. , PA, GEOGRAPHY TEACHER, lab, RT, psych nurse, social sciences lecturer, manager water, teacher, accounting officer, corrections caseworker)? Give summary @ -No Was smoking cessation discussed for >3mins.? @ -No Was critical care preformed (if so, how long)? @ -No Were there social determinants of health that impacted care today? How? (Homel essness, low income, unemployed, alcoholism, drug addiction, transportation, low edu. Level, literacy, decrease access to med. care, fpc, rehab)? @ -No Was there de-escalation of care discussed even if they declined (Discuss DNR or withdrawal of care, Hospice)? DNR status @ -No What co-morbidities impacted this encounter? (DM, HTN, Smoking, COPD, CAD, Cancer, CVA, ARF, Chemo, Hep., AIDS, mental health diagnosis, sleep apnea, morbid obesity)? @ -None Was patient admitted / discharged? Hospital course, mention meds given and route, prescriptions, significant lab abnormalities, going to OR and other pertinent info. @ -Patient is a 51-year-old female presenting with chief complaint of "I can feel my heart beating in my head". Has been ongoing for about 2 weeks. States that she had one episode that involved floaters and a black curtain falling over the eye that has since resolved completely. Physical examination is unremarkable. Ocular pressure is 12 bilaterally. No focal neurological deficits. Lab work is essentially unremarkable. CT angiogram of the head and neck as well as noncontrast enhanced CT of the brain show no acute process. Patient is educated on these findings. Follow-up with PCP. Follow-up with vp research. Report back to ER with any new or worsening symptoms. Discussed return parameters and answered all questions. Patient conveyed verbal understanding and agreed to the plan. I discussed this case in detail with my attending Dr. Garcia Undiagnosed new problem with uncertain prognosis? @ -No Drug Therapy requiring intensive monitoring for toxicity (Heparin, Nitro, Insulin, Cardizem)? @ -No Were any procedures done? @ -No Diagnosis/symptom? @ -Pulsatile tinnitus Acute, or Chronic, or Acute on Chronic? @ -Acute Uncomplicated (without systemic symptoms) or Complicated (systemic symptoms)? @ -Uncomplicated Side effects of treatment? @ -No Exacerbation, Progression, or Severe Exacerbation? @ -No - Lab Data Result diagrams: 05/04/22 21:30 05/04/22 21:30 Lab Results 05/04/22 05/04/22 05/04/22 Range/Units 21:30 21:30 21:30 WBC 6.1 (3.8-10.6) k/uL RBC 4.22 (3.80-5.40) m/uL Hgb 12.8 (11.4-16.0) gm/dL Hct 37.0 (34.0-46.0) % MCV 87.8 (80.0-100.0) fL MCH 30.3 (25.0-35.0) pg MCHC 34.6 (31.0-37.0) g/dL RDW 12.3 (11.5-15.5) % Plt Count 281 (150-450) k/uL MPV 7.0 Neutrophils % 56 % Lymphocytes % 35 % Monocytes % 5 % Eosinophils % 2 % Basophils % 0 % Neutrophils # 3.4 (1.3-7.7) k/uL Lymphocytes # 2.1 (1.0-4.8) k/uL Monocytes # 0.3 (0-1.0) k/uL Eosinophils # 0.1 (0-0.7) k/uL Basophils # 0.0 (0-0.2) k/uL PT 10.1 (9.0-12.0) sec INR 0.9 (<1.2) APTT 23.4 (22.0-30.0) sec Sodium 135 L (137-145) mmol/L Potassium 4.0 (3.5-5.1) mmol/L Chloride 105 (98-107) mmol/L Carbon Dioxide 25 (22-30) mmol/L Anion Gap 5 mmol/L BUN 15 (7-17) mg/dL Creatinine 0.72 (0.52-1.04) mg/dL Est GFR (CKD-EPI)AfAm >90 (>60 ml/min/1.73 sqM) Est GFR (CKD-EPI)NonAf >90 (>60 ml/min/1.73 sqM) Glucose 107 H (74-99) mg/dL Calcium 9.0 (8.4-10.2) mg/dL Total Bilirubin 0.3 (0.2-1.3) mg/dL AST 20 (14-36) U/L ALT 16 (4-34) U/L Alkaline Phosphatase 79 (38-126) U/L Troponin I (0.000-0.034) ng/mL Total Protein 6.8 (6.3-8.2) g/dL Albumin 4.2 (3.5-5.0) g/dL Urine Color Urine Appearance (Clear) Urine pH (5.0-8.0) Ur Specific [place] (1.001-1.035) Urine Protein (Negative) Urine Glucose (UA) (Negative) Urine Ketones (Negative) Urine Blood (Negative) Urine Nitrite (Negative) Urine Bilirubin (Negative) Urine Urobilinogen (<2.0) mg/dL Ur Leukocyte Esterase (Negative) Urine Opiates Screen (NotDetected) Ur Oxycodone Screen (NotDetected) Urine Methadone Screen (NotDetected) Ur Propoxyphene Screen (NotDetected) Ur Barbiturates Screen (NotDetected) U Tricyclic Antidepress (NotDetected) Ur Phencyclidine Scrn (NotDetected) Ur Amphetamines Screen (NotDetected) U Methamphetamines Scrn (NotDetected) U Benzodiazepines Scrn (NotDetected) Urine Cocaine Screen (NotDetected) U Marijuana (THC) Screen (NotDetected) 05/04/22 05/04/22 Range/Units 21:30 21:44 WBC (3.8-10.6) k/uL RBC (3.80-5.40) m/uL Hgb (11.4-16.0) gm/dL Hct (34.0-46.0) % MCV (80.0-100.0) fL MCH (25.0-35.0) pg MCHC (31.0-37.0) g/dL RDW (11.5-15.5) % Plt Count (150-450) k/uL MPV Neutrophils % % Lymphocytes % % Monocytes % % Eosinophils % % Basophils % % Neutrophils # (1.3-7.7) k/uL Lymphocytes # (1.0-4.8) k/uL Monocytes # (0-1.0) k/uL Eosinophils # (0-0.7) k/uL Basophils # (0-0.2) k/uL PT (9.0-12.0) sec INR (<1.2) APTT (22.0-30.0) sec Sodium (137-145) mmol/L Potassium (3.5-5.1) mmol/L Chloride (98-107) mmol/L Carbon Dioxide (22-30) mmol/L Anion Gap mmol/L BUN (7-17) mg/dL Creatinine (0.52-1.04) mg/dL Est GFR (CKD-EPI)AfAm (>60 ml/min/1.73 sqM) Est GFR (CKD-EPI)NonAf (>60 ml/min/1.73 sqM) Glucose (74-99) mg/dL Calcium (8.4-10.2) mg/dL Total Bilirubin (0.2-1.3) mg/dL AST (14-36) U/L ALT (4-34) U/L Alkaline Phosphatase (38-126) U/L Troponin I <0.012 (0.000-0.034) ng/mL Total Protein (6.3-8.2) g/dL Albumin (3.5-5.0) g/dL Urine Color Yellow Urine Appearance Clear (Clear) Urine pH 5.5 (5.0-8.0) Ur Specific [place] 1.032 (1.001-1.035) Urine Protein Trace H (Negative) Urine Glucose (UA) Negative (Negative) Urine Ketones Negative (Negative) Urine Blood Negative (Negative) Urine Nitrite Negative (Negative) Urine Bilirubin Negative (Negative) Urine Urobilinogen <2.0 (<2.0) mg/dL Ur Leukocyte Esterase Negative (Negative) Urine Opiates Screen Not Detected (NotDetected) Ur Oxycodone Screen Not Detected (NotDetected) Urine Methadone Screen Not Detected (NotDetected) Ur Propoxyphene Screen Not Detected (NotDetected) Ur Barbiturates Screen Not Detected (NotDetected) U Tricyclic Antidepress Not Detected (NotDetected) Ur Phencyclidine Scrn Not Detected (NotDetected) Ur Amphetamines Screen Not Detected (NotDetected) U Methamphetamines Scrn Not Detected (NotDetected) U Benzodiazepines Scrn Not Detected (NotDetected) Urine Cocaine Screen Not Detected (NotDetected) U Marijuana (THC) Screen Detected H (NotDetected) Disposition Clinical Impression: Pulsatile tinnitus Disposition: HOME SELF-CARE Condition: Good Instructions (If sedation given, give patient instructions): Tinnitus (ED) Additional Instructions: Follow-up with PCP. Report back to ER with any new or worsening symptoms. In some cases, sound therapy may help to suppress the thumping or whooshing sound caused by pulsatile tinnitus. Your doctor may recommend using a noise-suppressing device, such as a white noise machine or a wearable sound generator. The sound of an air conditioner or fan may also help, particularly at bedtime. Some lifestyle and behavioral modifications can help alleviate the symptoms of pulsatile tinnitus as well. The following therapies may be beneficial for some patients with pulsatile tinnitus: Cognitive behavioral therapy Meditation Relaxation techniques Tinnitus retraining therapy Is patient prescribed a controlled substance at d/c from ED?: No Referrals: Santiago Deras DO [Primary Care Provider] - 1-2 days Ashwin Wayne MD [STAFF PHYSICIAN] - 1-2 days Time of Disposition: 23:20
[2022-05-04 22:17] LABS: INR 0.9 (<1.2); Partial Thromboplastin Time 23.4 sec (22.0-30.0); Prothrombin Time 10.1 sec (9.0-12.0)
[2022-05-04 22:21] LABS: Appearance,Urine Clear (Clear); Bilirubin,Urine Negative (Negative); Blood,Urine Negative (Negative); Color,Urine Yellow; Glucose,Urine (UA) Negative (Negative); Ketones,Urine Negative (Negative); Leukocyte Esterase,Urine Negative (Negative); Nitrite,Urine Negative (Negative); PH, Urine 5.5 (5.0-8.0); Protein,Urine Trace (Negative); Specific Gravity,Urine 1.032 (1.001-1.035); Urobilinogen,Urine <2.0 mg/dL (<2.0)
[2022-05-04 22:21] LABS: ALT 16 U/L (4-34); AST 20 U/L (14-36); African American GFR (CKD) >90 (>60 ml/min/1.73 sqM); Albumin 4.2 g/dL (3.5-5.0); Alkaline Phosphatase 79 U/L (38-126); Anion Gap 5 mmol/L; Blood Urea Nitrogen 15 mg/dL (7-17); Carbon Dioxide 25 mmol/L (22-30); Chloride 105 mmol/L (98-107); Glucose 107 mg/dL (74-99); Non-African American GFR(CKD) >90 (>60 ml/min/1.73 sqM); Sodium 135 mmol/L (137-145); Total Bilirubin 0.3 mg/dL (0.2-1.3); Total Protein 6.8 g/dL (6.3-8.2)
[2022-05-04 22:27] LABS: Basophils % (A) 0 %; Eosinophils # (A) 0.1 k/uL (0-0.7); Eosinophils % (A) 2 %; HGB 12.8 gm/dL (11.4-16.0); Lymphocytes # (A) 2.1 k/uL (1.0-4.8); Lymphocytes % (A) 35 %; MCH 30.3 pg (25.0-35.0); MCHC 34.6 g/dL (31.0-37.0); MCV 87.8 fL (80.0-100.0); Monocytes # (A) 0.3 k/uL (0-1.0); Monocytes % (A) 5 %; Neutrophils # (A) 3.4 k/uL (1.3-7.7); Neutrophils % (A) 56 %; Platelet Count 281 k/uL (150-450); RBC 4.22 m/uL (3.80-5.40); RDW 12.3 % (11.5-15.5); WBC 6.1 k/uL (3.8-10.6)
--- NOTE | 2022-05-04 22:27 | CT ---
EXAMINATION TYPE: CT brain wo con DATE OF EXAM: 05/04/2022 COMPARISON: None HISTORY: vision/hearing changes, pulsating BECK. CT DLP: 1672.9 mGycm Automated exposure control for dose reduction was used. Images of the brain obtained with no contrast. Ventricles have fairly normal size. There is no mass effect or midline shift. No sign of intracranial hemorrhage. The calvarium is intact. There is normal aeration of the mastoid sinuses. Skull base is intact. IMPRESSION: Negative unenhanced head CT scan.
[2022-05-04 22:34] LABS: Amphetamine Screen,Urine Not Detected (NotDetected); Barbiturate Screen,Urine Not Detected (NotDetected); Benzodiazepines Screen,Urine Not Detected (NotDetected); Cocaine Screen,Urine Not Detected (NotDetected); Methadone Screen, Urine Not Detected (NotDetected); Opiate Screen,Urine Not Detected (NotDetected); Oxycodone Screen, Urine Not Detected (NotDetected); Phencyclidine Screen,Urine Not Detected (NotDetected); Tricyclic Antidepressant,Urine Not Detected (NotDetected); Urn Cannabinoid Scrn Detected (NotDetected)
--- NOTE | 2022-05-04 22:59 | CT ---
EXAMINATION TYPE: CT angio head neck DATE OF EXAM: 05/04/2022 COMPARISON: None HISTORY: vision/hearing changes, pulsating BECK. CT DLP: 1672.9 mGycm Automated exposure control for dose reduction was used. CONTRAST: Performed with IV Contrast, patient injected with 65ml mL of Isovue 370. Images obtained from the aortic arch to the vertex of the brain with the IV contrast. There are Three -D postprocessed images. There is normal branching pattern of the great vessels on the aortic arch. No mediastinal adenopathy. Thoracic aorta arch appears normal. There is arterial flow in both subclavian arteries. There is art erial flow in the common internal and external carotid arteries bilaterally. There is wide patency of the carotid artery bifurcations. There is arterial flow in both vertebral arteries. There is arteria l flow in the vertebral basilar artery system. No evidence of carotid or vertebral artery aneurysm or dissection. There is normal enhancement of the jugular veins. There is arterial flow in the anterior middle and posterior cerebral arteries bilaterally. No mass ef fect. No evidence of intracranial arterial stenosis. There is no evidence of aneurysm or neovasculari ty. Posterior cerebral arteries appear to fill mostly from the basilar artery. There is normal enhanc ement of the venous sinuses. No mass effect. IMPRESSION: Negative CT angiogram of the neck. Negative CT angiogram of the brain.
== END 2022-05-04 23:32 | disposition home or self-care (01) ==
LOC: EC 20:46
DX: H93.A3 Pulsatile tinnitus, bilateral (principal)
CPT/HCPCS: 99285 ×2; 96374 ×2; 96361 ×2; 36415; 93005; 80053; 84484; 85025; 85610; 85730; 81003; 80306; 70496; 70450; 70498; J2060; Q9967

== ENCOUNTER → 2022-06-27 | Outpatient (CLI) | payer BC ==
--- NOTE | 2022-06-28 19:27 | MM ---
Reason for Exam: Screening (asymptomatic). Last mammogram was performed 1 year(s) and 7 month(s) ago. Patient History: Menarche at age 14. First Full-Term at age 21. Hysterectomy at age 48. Postmenopausal. Patient has history of breast feeding. Hormonal Contraceptives, starting at age 48. Paternal grandmother had breast cancer at or over age 50. Maternal grandmother had breast cancer at or over age 50. Paternal cousin had breast cancer, age 56. Risk Values: Socorro 5 year model risk: 0.9%. NCI Lifetime model risk: 7.9%. Prior Study Comparison: 03/02/2019 Bilateral Screening Mammogram, [facility]. 03/10/2019 Left Diagnostic Mammogram, [facility]. 11/30/2020 Bilateral Screening Mammogram, [facility]. Tissue Density: The breast tissue is heterogeneously dense. This may lower the sensitivity of mammography. Findings: Analyzed By CAD. Overall unchanged appearance to the areas of patient's asymmetric densities and irregular breast tissue when comparing against various prior studies. There is no suspicious group of microcalcifications or new suspicious mass in either breast. Overall Assessment: Benign, BI-RAD 2 Management: Screening Mammogram of both breasts in 1 year. 1. Note that the patient's breast tissue type is favorable for 3-D mammographic assessment. Patient should continue monthly self breast exams. 2. A clinical breast exam by your physician is recommended on an annual basis. 3. This exam should not preclude additional follow-up of suspicious palpable abnormalities. Electronically signed and approved by: Ashish Alejandra M.D. Radiologist
== END | disposition home or self-care (01) ==
LOC: RADMAMWWP 17:08
PROVIDERS: ATTEND Obstetrics & Gynecology
DX: Z12.31 Encounter for screening mammogram for malignant neoplasm of breast (principal); Z78.0 Asymptomatic menopausal state; Z80.3 Family history of malignant neoplasm of breast
CPT/HCPCS: 77067

== ENCOUNTER → 2023-11-07 | Outpatient (CLI) | payer BC ==
--- NOTE | 2023-12-03 11:21 | MM ---
Reason for Exam: Screening (asymptomatic). Last mammogram was performed 1 year(s) and 5 month(s) ago. Patient History: Menarche at age 14. First Full-Term at age 21. Hysterectomy at age 48. Postmenopausal. Patient has history of breast feeding. Hormonal Contraceptives, starting at age 48. Paternal grandmother had breast cancer at or over age 50. Maternal grandmother had breast cancer at or over age 50. Paternal cousin had breast cancer, age 56. Risk Values: Alexander 5 year model risk: 0.9%. NCI Lifetime model risk: 7.8%. Prior Study Comparison: 03/10/2019 Left Diagnostic Mammogram, [facility]. 11/30/2020 Bilateral Screening Mammogram, [facility]. 06/27/2022 Bilateral MG screening mammo w CAD, [facility]. Tissue Density: The breasts are heterogeneously dense, which may obscure small masses. Findings: Analyzed By CAD. Asymmetric density central outer aspect of the left breast is review middle to posterior depth appears more defined and incompletely disperses on 3-D images. This may represent superimposition shadow but further evaluation is recommended. Other areas of asymmetric density remain unchanged. Overall Assessment: Incomplete: need additional imaging evaluation, BI-RAD 0 Management: Special View Mammogram of the left breast. Diagnostic Breast Ultrasound of the left breast. 1. Special View Mammogram Left to include spot 3-D CC, 3-D CC rolled, and 3-D ML views. . 2. Targeted left breast ultrasound. [facility] will attempt to contact patient to return for supplemental views and ultrasound if indicated. NOTE ON ALEXANDER SCORES AND LIFETIME RISK: 1. A Alexander score greater than 3% is considered moderate risk. If this is the case, consider specialist referral to assess eligibility for a risk reducing agent. 2. If overall lifetime risk for the development of breast cancer is 20% or higher, the patient may qualify for future screening with alternating mammogram and breast MRI. Electronically signed and approved by: Ashish Alejandra M.D. Radiologist
== END | disposition home or self-care (01) ==
LOC: RADMAMWWP 16:01
PROVIDERS: ATTEND Obstetrics & Gynecology
DX: Z12.31 Encounter for screening mammogram for malignant neoplasm of breast (principal); R92.333 Mammographic heterogeneous density, bilateral breasts; Z78.0 Asymptomatic menopausal state; Z80.3 Family history of malignant neoplasm of breast
CPT/HCPCS: 77063; 77067

== ENCOUNTER → 2023-12-05 | Outpatient (CLI) | payer BC ==
--- NOTE | 2023-12-06 08:03 | MM ---
Reason for Exam: Additional evaluation requested from abnormal screening. Last screening mammogram was performed less than 1 month ago. Patient History: Menarche at age 14. First Full-Term at age 21. Hysterectomy at age 48. Postmenopausal. Patient has history of breast feeding. Hormonal Contraceptives, starting at age 48. Paternal grandmother had breast cancer at or over age 50. Maternal grandmother had breast cancer at or over age 50. Paternal cousin had breast cancer, age 56. Risk Values: [place] 5 year model risk: 0.9%. NCI Lifetime model risk: 7.8%. Prior Study Comparison: 11/30/2020 Bilateral Screening Mammogram, [facility]. 06/27/2022 Bilateral MG screening mammo w CAD, [facility]. 11/07/2023 Bilateral MG 3D screening mammo w/cad, [facility]. Tissue Density: Left: The breasts are heterogeneously dense, which may obscure small masses. Findings: Analyzed By CAD. A centrally located asymmetric density middle to posterior depth slightly outer aspect appears to improve in appearance on additional views suggesting superimposition shadow. Given the appearance on screening exam, precautionary 6 month follow-up is recommended. Overall Assessment: Probably benign, BI-RAD 3 Management: Diagnostic Mammogram of the left breast in 6 months. . Results were given to the patient verbally at the time of exam. Patient should continue monthly self-breast exams. A clinical breast exam by your physician is recommended on an annual basis. This exam should not preclude additional follow-up of suspicious palpable abnormalities. Note on Socorro scores and lifetime risk: 1. A Socorro score greater than 3% is considered moderate risk. If this is the case, consider specialist referral to assess eligibility for a risk reducing agent. 2. If overall lifetime risk for the development of breast cancer is 20% or higher, the patient may qualify for future screening with alternating mammogram and breast MRI. Electronically signed and approved by: Ashish Alejandra M.D. Radiologist
== END | disposition home or self-care (01) ==
LOC: RADMAMWWP 07:23
PROVIDERS: ATTEND Family Medicine
DX: R92.8 Other abnormal and inconclusive findings on diagnostic imaging of breast
CPT/HCPCS: 77061; 77065